=== PATIENT | female | born 1945 | race Caucasian/White ===

== ENCOUNTER 2024-08-08 09:41 | Emergency (ER) | payer OTHER ==
[~2024-08-08] VITALS: Ht 157.5 cm; Wt 50.0 kg
[2024-08-08] MEDS ORDERED: LANOXIN125 MCG PO (11:29)
[2024-08-08] MEDS ORDERED: ELIQUIS5 MG PO (11:29)
[2024-08-08 11:40] VITALS: BP 136/78
== END 2024-08-08 11:40 | disposition home or self-care (01) ==
LOC: ED 09:41
DX: Z76.0 Encounter for issue of repeat prescription (principal); I48.91 Unspecified atrial fibrillation; Z79.01 Long term (current) use of anticoagulants
CPT/HCPCS: 99281

== ENCOUNTER 2024-11-25 10:25 | Emergency (ER) | payer MEDICARE, OTHER ==
[~2024-11-25] VITALS: Ht 157.5 cm; Wt 45.3 kg
[~2024-11-25 10:25] MED LIST: ELIQUIS5 MG PO; LANOXIN125 MCG PO
[2024-11-25 17:53] VITALS: BP 152/106
== END 2024-11-25 17:56 | disposition home or self-care (01) ==
LOC: ED 10:25
DX: S12.111A Posterior displaced Type II dens fracture, initial encounter for closed fracture (principal); S12.200A Unspecified displaced fracture of third cervical vertebra, initial encounter for closed fracture; I10 Essential (primary) hypertension; I48.91 Unspecified atrial fibrillation; W01.0XXA Fall on same level from slipping, tripping and stumbling without subsequent striking against object, initial encounter; Z79.899 Other long term (current) drug therapy
CPT/HCPCS: 72040; 72125; 99284-25

== ENCOUNTER 2025-02-16 16:19 | Inpatient (IN) | payer MEDICARE, OTHER ==
[~2025-02-16] VITALS: Ht 157.5 cm; Wt 38.4 kg
[~2025-02-16 16:19] MED LIST changes: +CARTIA XT180 MG PO; +METOPROLOL SUC100 MG PO
[2025-02-16] MEDS ORDERED: METOPROLOL TARTRATE 5 MG/5 ML VIAL IV SCH (16:30)
[2025-02-16 16:33] LABS: BASOPHILS 0.2 % (0.1-1.2); EOSINOPHILS 0 % (0.7-5.8); LYMPHOCYTES 6.6 % (19.3-51.7); MCH 35.3 PG (25.6-32.2); MCHC 32.1 g/dL (32.2-35.5); MCV 109.8 fL (79.4-94.8); MONOCYTES 5.8 % (4.7-12.5); NEUTROPHILS 87.1 % (34.0-71.1); RBC 3.57 M/uL (3.93-5.22)
[2025-02-16] MEDS ORDERED: SODIUM CHLORIDE 0.9% 500 ML IV PRN ×2 (16:45→17:15)
[2025-02-16 16:58] LABS: ALT (SGPT) 61 U/L (14-59); AST (SGOT) 163 U/L (15-37); GLOMERULAR FILTRATION RATE,EST 51 mL/min (>60); PROTEIN, TOTAL 7.0 g/dL (6.4-8.2); UREA NITROGEN 31 mg/dL (7-18)
[2025-02-16 17:00] LABS: LACTIC ACID, BLOOD 1.8 mmol/L (0.4-2.0)
[2025-02-16] MEDS ORDERED: OXYCODONE HCL5 M3 PO (17:09)
[2025-02-16] MEDS ORDERED: DIGOXIN 500 MCG/2 ML AMP IV ONE ×2 (17:15→18:15)
[2025-02-16 18:47] LABS: BLOOD/HGB, URINE TRACE-I (Negative); KETONE, URINE SMALL (Negative); LEUK ESTERASE, URINE TRACE (negative); NITRITE, URINE NEGATIVE (negative)
[2025-02-16 18:59] LABS: BACTERIA, URINE 1+ /hpf (negative); CRYSTALS, URINE NONE SEEN (0-1+); EPITHELIAL CELLS, URINE SQUAMOUS 2+ /lpf (0-1+)
[2025-02-16 19:00] LABS: CASTS, URINE HYALINE 2+ \\lpf; REFLEX CULTURE, URINE No (No)
[2025-02-16] MEDS ORDERED: ACETAMINOPHEN 325 MG TAB PO PRN (19:30)
[2025-02-16] MEDS ORDERED: LACTATED RINGER'S 1,000 ML IV SCH (19:30)
[2025-02-16] MEDS ORDERED: PROCHLORPERAZINE EDISYLATE 10 MG/2 ML VIAL IV PRN (19:30)
[2025-02-16] MEDS ORDERED: DEXTROSE 50% 50 ML SYR IV PRN ×2 (19:45)
[2025-02-16] MEDS ORDERED: GLUCAGON,HUMAN RECOMBINANT 1 MG/ML VIAL SUB-Q PRN (19:45)
[2025-02-16] MEDS ORDERED: IBLOOD GLUCOSE TEST STRIP 1 EA TEST XX PRN (19:45)
[2025-02-16] MEDS ORDERED: DEXTROSE 5% 1,000 ML IV PRN (19:45)
[2025-02-16] MEDS ORDERED: METOPROLOL TARTRATE 25 MG TAB PO SCH (20:00)
[2025-02-16 20:24] VITALS: BP 104/67
--- NOTE | 2025-02-16 20:27 | EKG ---
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
[2025-02-16 20:30] VITALS: BP 102/74
--- NOTE | 2025-02-16 20:30 | NUR ---
PATIENT ARRIVED TO THE UNIT 2004 VIA STRETCHER. PATIENT IS AAOX4. HR 110-140'S A FIB. BP STABLE. PATIENT IS TOLERATING ROOM AIR. DENIES SOB OR PAIN. PATIENT IS WEAK; ABLE TO TRANSFER WITH 2PA. BRUISING NOTED ON PATIENT'S FOREHEAD AND LEFT SHOULDER. REDNESS/BRUISING NOTED ON BOTH SIDE OF UPPER/MID BACK. REDNESS AND EXCORIATION NOTED IN GLUTEAL CREVIS AND YESI AREA. PATIENT REPORTS SORENESS IN THIS AREA WHEN GOING TO THE BATHROOM. PATIENT EXTREMITIES FEEL COLD AND ARE DUSKY COLORED. DIFFICULT TO OBTAIN PULSE OX READING ON FINGERS OR EAR LOBE. NOSE CLIP USED. WARM BLANKETS APPLIED. IV FLUIDS STARTED PER ORDER; IV SITE WNL X1. DISCUSSED CALLING PATIENT'S FRIENDS OR FAMILY TO LET THEM KNOW SHE IS HERE. PATIENT STATED IF AN EMERGENCY OCCURED WE COULD CALL HER SON JUNIOR, BUT OTHERWISE DID NOT WANT TO LET ANYONE KNOW SHE WAS HERE TONIGHT. PATIENT HAS HER CELLPHONE WITH HER.
[2025-02-16 20:45] VITALS: BP 98/72
[2025-02-16] MEDS ORDERED: POTASSIUM CHLORIDE 10 MEQ TABCR PO ONE (20:45)
[2025-02-16] MEDS ORDERED: MAGNESIUM SULFATE 2 GM/50 ML BAG IV ONE (20:45)
--- NOTE | 2025-02-16 20:45 | NUR ---
PATIENT'S HR DROPPED TO THE 30-40'S AND APPEARS TO BE A SINUS ARRYTHMIA. THIS LAST FOR ABOUT A MIN AND THEN BACK TO AFIB IN THE 130'S. DISCUSSED THIS WITH . PO LOPRESSOR GIVEN PER ORDER.
[2025-02-16 21:00] VITALS: BP 92/56
[2025-02-16 21:45] VITALS: BP 99/64
--- NOTE | 2025-02-16 21:50 | NUR ---
PATIENT PROVIDED MAG AND K+ REPLACEMENT PER ORDER. ASSISTED PATIENT UP TO BSC. PATIENT IS WEAK BUT ABLE TO STAND ON HER OWN AND TRANSFER. THICK BARRIER CREAM APPLIED TO GLUTEAL CREVIS AND YESI AREA REDNESS. PATIENT REPORTS IT FEELS BETTER WITH THE CREAM. PATIENT ALSO HAD SMALL AMOUNT OF LOOSE STOOL WHICH SHE STATES HAS BEEN HAPPENING THE LAST WEEK OR SO. PATIENT ASSISTED BACK INTO BED. WARM BLANKETS PROVIDED. PATIENT REQUEST THE TV AND LIGHTS OFF. CALL LIGHT IN REACH. BED ALARM ACTIVE. ALLOWED PATIENT TO REST.
[2025-02-16 23:20] VITALS: BP 94/65
--- NOTE | 2025-02-16 23:30 | NUR ---
PATIENT RESTING IN BED. ALERT. DENIED NEEDS. VS STABLE. IV SITE WNL. CALL LIGHT IN REACH.
[2025-02-17] VITALS (17 sets, daily range): BP systolic 80–139; BP diastolic 58–90
--- NOTE | 2025-02-17 02:30 | NUR ---
PATIENT PROVIDED SCHEDULED MEDS. VS STABLE. PATIENT REPORTS PAIN IN HER FEET. HEELS FLOATED ON PILLOW. PRN TYLENOL PROVIDED.
--- NOTE | 2025-02-17 04:00 | NUR ---
PATIENT ASSISTED TO FIND SOMETHING TO WATCH ON TV. PATIENT IS UNABLE TO SLEEP. VS STABLE. DENIED NEED TO VOID. CALL LIGHT IN REACH.
[2025-02-17 05:28] LABS: BASOPHILS 0.1 % (0.1-1.2); EOSINOPHILS 0.1 % (0.7-5.8); LYMPHOCYTES 15.6 % (19.3-51.7); MCH 35.4 PG (25.6-32.2); MCHC 32.9 g/dL (32.2-35.5); MCV 107.7 fL (79.4-94.8); MONOCYTES 8.8 % (4.7-12.5); NEUTROPHILS 75.1 % (34.0-71.1); RBC 2.60 M/uL (3.93-5.22)
[2025-02-17 05:58] LABS: ALT (SGPT) 35.0 U/L (14-59); AST (SGOT) 94.0 U/L (15-37); GLOMERULAR FILTRATION RATE,EST 80.0 mL/min (>60); PHOSPHORUS, INORGANIC 2.5 mg/dL (2.5-4.9); PROTEIN, TOTAL 4.9 g/dL (6.4-8.2); UREA NITROGEN 21.0 mg/dL (7-18)
--- NOTE | 2025-02-17 07:00 | NUR ---
PATIENT DENIED NEED TO VOID. BLADDER SCAN 250 MLS. PATIENT THEN HAD TO VOID AFTER PRESSURE APPLIED. PATIENT UP TO BSC WITH DAILY EVERETT RN.
--- NOTE | 2025-02-17 07:15 | NUR ---
PT BACK TO BED AFTER USING BSC. PT WEAK ON TRANSFER, STEADY ON FEET WITH 1PA. PROVIDED PT WITH JUICE PER REQUEST. CALL LIGHT IN REACH
--- NOTE | 2025-02-17 07:30 | NUR ---
REPORT RECEIVED FROM MADELEINE HASSAN. PT RESTING IN BED, AWAKE, DENIES NEEDS AT THIS TIME. HR MOSTLY 80'S-90'S, DIPPING DOWN OCCASIONALLY WITH 4 SECOND PAUSES, MD AWARE.
--- NOTE | 2025-02-17 08:30 | NUR ---
BREAKFAST BROUGHT IN TO PT, NO NEEDS AT THIS TIME.
[2025-02-17] MEDS ORDERED: DIGOXIN 125 MCG TAB PO SCH (09:00)
--- NOTE | 2025-02-17 09:20 | NUR ---
PT WORKING WITH PHYSICAL THERAPY. HR UP TO 120'S BRIEFLY BUT GOES BACK DOWN.
--- NOTE | 2025-02-17 09:45 | NUR ---
IN TO GIVE SCHEDULED DIGOXIN, JOCELYN MARSHALL'Lit PER DR OSBORNE. PT SITTING UP IN CHAIR, HAS NO REQUESTS AT THIS TIME.
--- NOTE | 2025-02-17 10:10 | NUR ---
SPEECH THERAPIST IN TO SEE PT. PT REMAINS SITTING UP IN CHAIR.
--- NOTE | 2025-02-17 11:10 | NUR ---
PT RESTING IN CHAIR, WATCHING TV. DENIES NEEDS AT THIS TIME, CALL LIGHT IN REACH
[2025-02-17] MEDS ORDERED: PHARMACY RENAL DOSE ADJUSTMENT 1 DOSE MISC PO SCH (12:00)
--- NOTE | 2025-02-17 12:09 | NUR ---
PT HAS BEEN SITTING IN CHAIR, WORKING ON EATING HER LUNCH, HR HAS BEEN VARIABLE, RANGING FROM 40'S UP TO 140'S. OVERALL MOSTLY 100-140'S. PT DENIES FEELING ANY SYMPTOMS DURING THIS TIME EVEN WHEN HR UP TO 140'S SHE STATES SHE DOES NOT FEEL ANY DIFFERENCE. DR OSBORNE CALLED AND UPDATED, ORDER GIVEN FOR 12.5MG PO LOPRESSOR.
[2025-02-17] MEDS ORDERED: METOPROLOL TARTRATE 25 MG TAB PO ONE (12:15)
--- NOTE | 2025-02-17 12:38 | NUR ---
MED REC COMPLETE
[2025-02-17] MEDS ORDERED: LACTATED RINGER'S 1,000 ML IV ONE (13:00)
--- NOTE | 2025-02-17 13:06 | NUR ---
LR BOLUS STARTED INTO RIGHT AC IV SITE. PT RESTING IN CHAIR, DENIES NEEDS AT THIS TIME, CALL LIGHT IN REACH.
--- NOTE | 2025-02-17 14:00 | NUR ---
PT REMAINS UP IN CHAIR, HR 90-100'S AFIB.
--- NOTE | 2025-02-17 14:15 | NUR ---
INTO SEE PATIENT. PERSONAL HEALTH INFORMATION REVIEWED. PATIENT LIVES ALONE AT [facility]. PATIENT DOES NOT HAVE ANY STEPS AT HOME. WALKER AT BASELINE. DENIES OXYGEN USE OR CPAP. PATIENT STATES SHE STILL DRIVES. PATIENT STATES THAT MONEY GETS TIGHT EVERY MONTH BUT SHE MANAGES. SPOKE WITH HER ABOUT THERAPY RECCOMENDATIONS SNF. PATIENT AGREEABLE. PATIENT CHOICE LETTER GIVEN. [place] IS WHERE SHE WOULD LIKE TO GO. ATTEMPTED TO CALL SON. LEFT MESSAGE TO CALL BACK.
--- NOTE | 2025-02-17 15:20 | NUR ---
UR CLINICAL REVIEW: 2 MN FOR VERSALUS-PER CATALOGING ASSISTANT MEETS INPT FOR AFIB WITH RVR WITH NEED FOR MONITORING AND MEDICATION ADJUSTMENT MEDICARE INPT 02/16/25 @ 1443 ORDER MATCHES REG NO AUTH REQUIRED PER MEDICARE GUIDELINES DISCHARGE TO HOME WHEN STABLE
--- NOTE | 2025-02-17 16:41 | NUR ---
PT SITTING UP IN CHAIR, HR 100'S AFIB.
--- NOTE | 2025-02-17 17:45 | NUR ---
PT ATE SMALL AMT DINNER, REMAINS UP IN CHAIR.
--- NOTE | 2025-02-17 19:00 | NUR ---
PT ASSISTED TO REPOSITION, WANT TO STAY UP IN CHAIR, RESTING HR 90-100'S. HR HAS BEEN MORE STABLE THIS AFTERNOON.
--- NOTE | 2025-02-17 20:10 | NUR ---
[facility] TO [facility] BEFORE BACK TO BED. PT HAD A SMEAR OF BM. PT THEN TRANSFER TO BED WITH ONE PERSON. PT BACK IS VERY BRUSHED FROM THE FALL AT HOME. PT TOOK PO MEDS WELL CALL LIGHT WITHIN REACH BED ALARM ON.
[2025-02-17] MEDS ORDERED: APIXABAN 5 MG TAB PO SCH (21:00)
--- NOTE | 2025-02-17 21:00 | NUR ---
PT ASLEEP AND SPO2 DECREASE TO 87% ON ROOM AIR. PT PLACED ON 2L'S O2 VIA NC AND SPO2 INCREASED 94%.
--- NOTE | 2025-02-17 21:55 | NUR ---
PT ASLEEP AT THIS TIME, PT CONTIOUES TO AT TIMES HEART RATE DECREASE TO THE 40"S AND THEN POP'S UP TO THE 80 TO 90"S. PT HAS NO DESTRESS WITH THIS.
[2025-02-18] VITALS (22 sets, daily range): BP systolic 91–129; BP diastolic 56–97
--- NOTE | 2025-02-18 00:06 | NUR ---
PT AWAKENS WHEN SPOKEN TOO, PT COLD WARM BLANKET GIVEN AT THIS TIME. ASKED PT IF SHE HAD TO VOID AND PT STATES "NO"
--- NOTE | 2025-02-18 02:55 | NUR ---
PT REPOSITIONED TO RT SIDE, BED ALARM INPLACE. PT CONTIOUES TO SAY SHE DOES NOT NEED TO VOID, BED IS DRY.
--- NOTE | 2025-02-18 05:20 | NUR ---
PT UP TO BEDSIDE COMMODE. AFTER LAB SAMPLE OBTAINED. PT IS VERY STIFF AND PUSH AGAINST STAFF TRYING TI HELP MOVE HER. PT VOIDED AND PASSED SOME GAS, BUT NO BM AT THIS TIME. FRESH ATTENDS PLACED. BACK TO BED AND CALL LIGHT WITHIN REACH, BED ALARM ON.
[2025-02-18 05:21] LABS: BASOPHILS 0.4 % (0.1-1.2); EOSINOPHILS 0.6 % (0.7-5.8); LYMPHOCYTES 21.5 % (19.3-51.7); MCH 35.8 PG (25.6-32.2); MCHC 33.3 g/dL (32.2-35.5); MCV 107.3 fL (79.4-94.8); MONOCYTES 9.3 % (4.7-12.5); NEUTROPHILS 67.8 % (34.0-71.1); RBC 2.60 M/uL (3.93-5.22)
[2025-02-18 05:31] LABS: SMEAR REVIEW BLOOD SEE COMMENTS
[2025-02-18 05:38] LABS: ALT (SGPT) 36.0 U/L (14-59); AST (SGOT) 69.0 U/L (15-37); GLOMERULAR FILTRATION RATE,EST 91.0 mL/min (>60); PROTEIN, TOTAL 4.3 g/dL (6.4-8.2); UREA NITROGEN 14.0 mg/dL (7-18)
--- NOTE | 2025-02-18 06:48 | NUR ---
PT TURNED TO RT SIDE AT THIS TIME, SHE STILL IS CONFUSED TO EVENTS AND PLACE AND WHAT SHE DID LAST NIGHT. BED ALARM ON.CALL LIGHT WITHIN REACH
--- NOTE | 2025-02-18 08:30 | NUR ---
PATIENT IS SITTING IN CHAIR WITH BLE ON THE FLOOR, CHAIR ALARM IN PLACE. PATIENT HAS BREAKFAST TRAY IN FRONT OF HER. DISORIENTED TO TIME, EVENT AND LOCATION. PATIENT IS CONCERNED ABOUT HER TV AND CAR BEING STOLEN. SHE COMMUNICATED WANTING TO GO INTO TOWN TODAY AND WAS REORIENTED TO THE HOSPITAL WITH A REALISTIC PLAN OF CARE. PATIENT HAS CLEAR LUNG SOUNDS AND IS ON RA. HR IS BETWEEN 40S-150S. NO EDEMA NOTED, STRONG RADIAL AND PEDAL PULSES, CAPILLARY REFILL WITHIN 3 SECONDS. BRUISES SCATTERED THROUGHOUT HER BODY, SHE ENDORSES SOME SORENESS. PATIENT REPOSITIONS SELF WHEN UNCOMFORTABLE. PATIENT DENIES SOB OR PAIN. CALL LIGHT AND PERSONAL BELONGINGS ARE WITHIN REACH.
--- NOTE | 2025-02-18 09:43 | NUR ---
PT ASSISTED BACK TO BED WITH CHAIR NEXT TO BED AND 1 PERSON ASSIST. PT HAD HAD A SMALL BM IN DEPENDS, CHANGED AND CLEANED UP. PT STATES COMFORTABLE WITH CALL LIGHT IN REACH, ALARMS ON.
[2025-02-18] MEDS ORDERED: METOPROLOL TARTRATE 25 MG TAB PO SCH (09:45)
[2025-02-18] MEDS ORDERED: MAGNESIUM SULFATE 2 GM/50 ML BAG IV SCH (09:45)
[2025-02-18] MEDS ORDERED: LACTATED RINGER'S 1,000 ML IV ONE (09:45)
[2025-02-18] MEDS ORDERED: POTASSIUM CHLORIDE 40 MEQ,LIDOCAINE HCL 1% 40 MG in DEXTROSE 5% 250 ML IV ONE (09:45)
--- NOTE | 2025-02-18 10:44 | NUR ---
PHYSICAL THERAPY, OCCUPATIONAL THERAPY AND CASE MANAGMENT IN THE ROOM WITH THE PATIENT AT THIS TIME. PATIENT HAS LR BOLUS, IV MAGNESIUM AND POTASSIUM INFUSING AT THIS TIME. PATIENT IS ON 1L NC DUE TO DESAT WITH SLEEP. PHYSICAL THERAPIST INFORMED THEY COULD TAKE IT OFF FOR AMBULATION IF SHE IS ABOVE 90%. PATIENT STATES NO FURTHER NEEDS. IV SITE PATENT WITH NO SIGNS OF LEAKING OR EXTRAVASTION. PATIENT CONTINUES TO NOT BE ORIENTED TO EVENT, DATE AND TIME, EVEN WITH REORIENTATION.
--- NOTE | 2025-02-18 10:45 | NUR ---
Spoke with Camilla. She lives at [facility] and plans on returning there following dc. Pt is working with PT/OT and pt is agreeable to placement to a SNF on dc. Pt denies needs.
--- NOTE | 2025-02-18 11:40 | NUR ---
VISITED DURING SPIRITUAL CARE ROUNDS. PT APPEARED OT BE SLEEPING. DID NOT DISTURB. PROVDED PRAYER.
--- NOTE | 2025-02-18 13:22 | NUR ---
PATIENT BACK IN BED AFTER SITTING IN THE CHAIR FOR ABOUT AN HOUR TO EAT LUNCH. PATIENT STATED SHE HAD SOME SOB AND DIZZINESS WITH AMBULATION. O2 SATURATION DID NOT HAVE A READABLE PLETH WITH AMBULATION. PATIENT'S O2 IN 90'S WHILE IN BED. BP 97/56 (70), WHILE LAYING IN BED. EXTREMITIES COOL AND CAPILLARY REFILL WNL. PATIENT HAD 100ML ENSURE AND NO LUNCH. PATIENT HAS POOR APPETITE AND REFUSED MORE SUPPLEMENTATION. PATIENT HAS EVEN, UNLABORED RESPIRATIONS AT THIS TIME. CALL LIGHT AND PERSONAL BELONGINGS ARE WITHIN REACH.
--- NOTE | 2025-02-18 14:56 | NUR ---
PATIENT BACK TO BED AFTER USING THE COMMODE. PATIENT HAD A SOFT, BROWN, MEDIUM BOWEL MOVEMENT AND VOIDED 100ML YELLOW URINE. PATIENT DID NOT CALL APPROPRIATELY, BED ALARM ON. PATIENT IS ONLY ORIENTED TO SELF. PATIENT AMBULATED WITH FWW AND SBA, SHE WAS SOMEWHAT UNSTEADY, ENDORSED SOB AND FOLLOWED SOME COMMANDS. PATIENT HAS PERSONAL BELONGINGS AND CALL LIGHT WITHIN REACH.
[2025-02-18] MEDS ORDERED: THIAMINE HCL 100 MG TAB PO SCH (15:23)
[2025-02-18] MEDS ORDERED: FOLIC ACID 1 MG TAB PO SCH (15:23)
[2025-02-18] MEDS ORDERED: FOLIC ACID 1 MG/0.2 ML ML IV SCH (15:28)
[2025-02-18] MEDS ORDERED: THIAMINE HCL 200 MG/2 ML VIAL IV SCH (15:29)
[2025-02-18] MEDS ORDERED: LORazepam 2 MG/ML VIAL IV/IM PRN (15:30)
[2025-02-18] MEDS ORDERED: LORazepam 1 MG TAB PO PRN (15:30)
--- NOTE | 2025-02-18 16:06 | NUR ---
DR. OSBORNE IN THE ROOM AT THIS TIME DISCUSSING PLAN OF CARE WITH PATIENT. DISCUSSING ALCOHOL USE AND NEW HEART MEDICATIONS, PATIENT ACKNOWLEDGES UNDERSTANDING. PATIENT ASKED WHEN SHE CAN GO HOME. PATIENT DENIES FURTHER QUESTIONS. SHE STATES "I JUST WANT TO GO HOME". CALL LIGHT AND PERSONAL BELONGINGS ARE WITHIN REACH.
--- NOTE | 2025-02-18 16:51 | NUR ---
Notified by nurses pt has shakes. In and spoke with pt. She does states she drinks white wine daily about a cup. She states she does not have any desire to cont. drinking. Pt is having difficulty answering questions. She believes she is on oxygen. She cannot remember where she gets her 02 from. I called [employer] and neither have her listed. Notes from yesterday show pt does not use 02.
--- NOTE | 2025-02-18 19:40 | NUR ---
HANDOFF REPORT RECEIVED FROM DAYSHIFT RN. ALL QUESTIONS ANSWERED. PATIENT RESTING IN BED. VITAL SIGNS STABLE. BED ALARM ON, CALL LIGHT IN REACH
--- NOTE | 2025-02-18 21:20 | NUR ---
PATIENT ASSESSMENT COMPLETE. PATIENT REMAINS IN AFIB W/ HR OF 100'S-120'S. RR EVEN AND UNLABORED. PATIENT ON 4L OXYMASK, AND TOLERATING WELL. LUNGS SOUNDS CLEAR. IVF INFUSING PER EMAR. IV SITE INTACT AND WNL. PATIENT LIGHT SPOKEN AND DIFFICULT TO UNDERSTAND AT TIMES. PATIENT DISORIENTED. NO EVIDENCE OF ACUTE DISTRESS NOTED. THIS RN AND SONYA BEE REMAIN IN ROOM.
--- NOTE | 2025-02-18 22:00 | NUR ---
PATIENT ATTEMPTING TO GET OUT OF BED. STAFF IN ROOM. PATIENT UP TO BSC. UNABLE TO VOID OR HAVE BM. PATIENT UNSTEADY ON FEET. 2 PA, STAND PIVOT. PATIENT BACK TO BED. PATIENT BECOMES RESTLESS AND AGITATED. UNABLE TO FOLLOW COMMANDS. CIWA SCORE OF 13, PRN ATIVAN ADMISTERED PER PROTOCOL. THIS RN AND SONYA BEE REMAIN IN ROOM.
--- NOTE | 2025-02-18 22:21 | NUR ---
PATIENT NOW RESTING COMFORTABLY IN BED. PATIENT REPOSITIONED. PATIENT ON 4L OXYMASK. SPO2 98%. PATIENT REMAINS IN AFIB. VITAL SIGNS STABLE. BED ALARM ON, CALL LIGHT IN REACH
--- NOTE | 2025-02-18 23:30 | NUR ---
PATIENT RESTING IN BED W/ EYES CLOSED. SPO2 96% ON 4L OXYMASK. NO EVIDENCE OF ACUTE DISTRESS NOTED. BED ALARM ON, CALL LIGHT IN REACH
[2025-02-19] VITALS (22 sets, daily range): BP systolic 106–148; BP diastolic 69–108
--- NOTE | 2025-02-19 00:16 | NUR ---
PATIENT RESTING IN BED WITH EYES CLOSED, OXYMASK TITRATED DOWN TO 2L. TOLERATING WELL, SPO2 97%. NO ACUTE DISTRESS NOTED. VITAL SIGNS STABLE. BED ALARM ON, CALL LIGHT IN REACH.
--- NOTE | 2025-02-19 01:12 | NUR ---
patient assessment complete. assessment unchanged. SPO2 97% on 2L oxymask. ivf infusing per emar. IV sites intact and WNL. patient remains in afib. HR 80's-90's. patient repositioned. no evidence of acute distress noted. call light in reach, bed alarm on.
--- NOTE | 2025-02-19 02:17 | NUR ---
patient resting in bed w/ eyes closed. SPO2 97% on 2L oxymask. patient tolerating well. no evidence of acute distress noted. call light in reach, bed alarm on
--- NOTE | 2025-02-19 03:15 | NUR ---
PATIENT RESTING IN BED. SPO2 97% ON 2L OXYMASK. NO EVIDENCE OF ACUTE DISTRESS NOTED. BED ALARM ON, CALL LIGHT IN REACH
--- NOTE | 2025-02-19 04:10 | NUR ---
PATIENT ASSESSMENT COMPLETE. PATIENT DROWSY BUT AROUSABLE TO VERBAL AND TACTILE STIMULI. PATIENT REFUSES ORAL MEDICATION. PATIENT SWATS AT THIS RN'S HAND. PATIENT BRIEFLY OPENS EYES BUT DRIFTS BACK TO SLEEP. PATIENT REPOSITIONED. SPO2 96% ON 2L OXYMASK. PATIENT REMAINS IN AFIB. HR UP TO 130'S W/ STIMULATION. PATIENT HR 70'S-90'S WHILE AT REST. PATIENT BRIEF CHECK AND IS CLEAN AND DRY. TOILETING OFFERED, PATIENT REFUSES. PATIENT DUE TO VOID. NO EVIDENCE OF ACUTE DISTRESS NOTED AT THIS TIME. BED ALARM ON, CALL LIGHT IN REACH.
--- NOTE | 2025-02-19 05:15 | NUR ---
PATIENT DROWSY BUT AROUSABLE TO VERBAL STIMULI. PATIENT REMAINS IN AFIB, HR 90'S-120'S. PATIENT DENIED NEED TO VOID. PATIENT BLADDER SCANNED FOR 156 ML. PATIENT UP TO BS, HEAVY 2 PA, STAND PIVOT. PATIENT BRIEF HEAVILY SATURATED W/ URINE. PATIENT VOID 100 ML OF CLEAR, YELLOW URINE AND HAD VERY SMALL AMOUNT OF STOOL. ALLEVYN PLACED ON UPPER BACK D/T NON-BLANCHABLE REDDENED AREA. SMALL OPEN AREA NOTED ON SACRUM, ALLEVYN PLACED. SKIN BREAKDOWN NOTED TO BUTTOCKS, CAVILON APPLIED. PATIENT LUNG SOUNDS NOTED TO BE COARSE THROUGHOUT. PATIENT AGREES TO TAKE ORAL MEDICATION. PATIENT TOLERATED WELL. PATIENT BACK TO BED. REPOSITIONED. QUICKLY FALLS BACK TO SLEEP. SPO2 95% ON 1L OXYMASK. NO FURTHER NEEDS IDENTIFIED. BED ALARM ON, CALL LIGHT IN REACH
[2025-02-19 05:27] LABS: BASOPHILS 0.9 % (0.1-1.2); EOSINOPHILS 1.5 % (0.7-5.8); LYMPHOCYTES 20.3 % (19.3-51.7); MCH 35.1 PG (25.6-32.2); MCHC 32.6 g/dL (32.2-35.5); MCV 107.9 fL (79.4-94.8); MONOCYTES 13.0 % (4.7-12.5); NEUTROPHILS 63.9 % (34.0-71.1); RBC 2.79 M/uL (3.93-5.22)
[2025-02-19 05:43] LABS: SMEAR REVIEW BLOOD SEE COMMENTS
[2025-02-19 05:46] LABS: ALT (SGPT) 33.0 U/L (14-59); AST (SGOT) 51.0 U/L (15-37); GLOMERULAR FILTRATION RATE,EST 91.0 mL/min (>60); PROTEIN, TOTAL 5.0 g/dL (6.4-8.2); UREA NITROGEN 9.0 mg/dL (7-18)
--- NOTE | 2025-02-19 06:07 | NUR ---
PATIENT DESATURATES TO 88% ON 1 L OXYMASK. PATIENT PLACED ON 2L OXYMASK. SPO2 NOW 98%. NO EVIDENCE OF ACUTE DISTRESS NOTED. BED ALARM ON, CALL LIGHT IN REACH
[2025-02-19] MEDS ORDERED: MULTIVITAMINS THERAPEUTIC 1 EA TAB PO SCH (08:00)
--- NOTE | 2025-02-19 08:15 | NUR ---
Received a call from pts son, Ambrose. He has been working out of town, but has returned. He states he and live in town and help Camilla when needed. 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 She has detoxed in the past at [facility] and it was very difficult. He has two brothers and they do not live in this area. Updated, I discussed with pt SNF yesterday and she requested to stay in [place]. Per Ambrose, pt has been in [place] in the past and she hated it. She would not eat and lost weight. He would prefer [facility] or [facility]. I let him know, she is confused today as she is withdrawing from alcohol. When she can make a decision, I will ask her about placement again. He also requested [facility]. I will send the chart to all and pt can make a decision when she is more clear.
--- NOTE | 2025-02-19 11:00 | NUR ---
Attempted to speak with Camilla. She does open her eyes, but only stares. She does not verbally respond.
--- NOTE | 2025-02-19 15:38 | EKG ---
[facility] [address] [place] [address] Signed Atrial fibrillation with rapid ventricular response Anterior infarct (cited on or before 23-DEC-2024) ST \T\ T wave abnormality, consider lateral ischemia Abnormal ECG When compared with ECG of 16-FEB-2025 17:08, Atrial fibrillation has replaced Atrial flutter Questionable change in initial forces of Anteroseptal leads Confirmed by Marifer Osborne MD () on 02/19/2025 3:38:14 PM Electronically Signed By: MARIFER OSBORNE MD 02/19/25 1538 PATIENT NAME: PEACE PARSON Electrocardiogram DATE OF : 49 PHYSICIAN: MARIFER OSBORNE MD REPORT #: [id number] REPORT IS CONFIDENTIAL AND NOT TO BE RELEASED WITHOUT AUTHORIZATION
--- NOTE | 2025-02-19 17:32 | NUR ---
PATIENT IS RESTING WITH EYES CLOSED AND HOB ELEVATED. PATIENT IS ON 2L OXYMASK, RR 18 AND O2 @ 97%. PATIENT GIVEN BED BATH AND LINEN CHANGE TODAY. DURING THE LINEN CHANGE, THE RIGHT WRIST IV WAS RIPPED OUT DURING THE GOWN CHANGE. IV CATHETER TIP INTACT AND DRESSED WITH GAUZE AND COBAN. PATIENT GIVEN ATIVAN PER JUL FOR A CIWA OF 16. PATIENT HAD TREMORS, VISUAL HALLUCINATIONS, SWEATING, AND RESTLASSNESS/AGITATION. WAFFLE MATTRESS PLACED WITH LINEN CHANGE. PATIENT CURRENTLY FLOATED ON TWO PILLOWS. BED ALARM ON, PERSONAL BELONGINGS AND CALL LIGHT ARE WITHIN REACH.
[2025-02-19] MEDS ORDERED: FUROSEMIDE 40 MG/4 ML VIAL IV SCH (18:25)
--- NOTE | 2025-02-19 19:30 | NUR ---
SHIFT REPORT RECEIVED. RT IN ROOM SETTING UP BIPAP. 1:1 SITTER AT BEDSIDE FOR SAFETY.
--- NOTE | 2025-02-19 19:56 | NUR ---
PATIENT RESTLESS IN BED. EYES CLOSED. ON BIPAP. VS STABLE. LUNG SOUNDS ARE THIGH AND COARSE THROUGHOUT; DIMINSIHED IN THE BASES. ANTUNEZ DRAINING CLEAR URINE. PATIENT IS COOL TO TOUCH. WARM BLANKETS APPLIED. 1:1 SITTER AT BEDSIDE.
--- NOTE | 2025-02-19 21:57 | NUR ---
PATIENT TOLERATING BIPAP WELL. HR IS TRENDING UP; 115-130 A FIB. BP STABLE. PATIENT AFEBRILE. GOOD URINE OUTPUT. SITTER 1:1 AT BEDSIDE.
[2025-02-19] MEDS ORDERED: METOPROLOL TARTRATE 5 MG/5 ML VIAL IV SCH (22:00)
--- NOTE | 2025-02-19 22:10 | NUR ---
DISCUSSED PATIENT WITH DR.JAGOO PEPPER PATIENT'S INABILITY TO TAKE PO MEDS AT THIS TIME AND RATE CONTROL FOR AFIB. PLAN TO START IV LOPRESSOR; SEE EMAR.
--- NOTE | 2025-02-19 22:51 | NUR ---
PATIENT PROVIDED SCHEDULED LOPRESSOR. IV SITE WNL. HR 110-130'S; AFIB. PATIENT TOLERATING THE BIPAP WELL. PATIENT MOVES ALL EXTREMITIES BUT DOES NOT RESPOND TO VERBAL STIMULI OR OPEN HER EYES. SITTER AT BEDSIDE.
[2025-02-20] VITALS (20 sets, daily range): BP systolic 91–133; BP diastolic 58–98
--- NOTE | 2025-02-20 | NUR ---
PATIENT REMAINS ON BIPAP AND IS MOSTLY OBTUNDED. RESPONDS TO PAIN AND HAS GAG REFLEX. PUPILS EQUAL AND REACTIVE TO LIGHT. VS STABLE. ANTUNEZ DRAINING LARGE AMOUNT OF CLEAR URINE. PATIENT HAS SITTER FOR SAFETY WHILE ON BIPAP.
--- NOTE | 2025-02-20 02:00 | NUR ---
PATIENT STATUS UNCHANGED FROM PREVIOUS ASSESSMENT. REMIANS ON BIPAP, REMAINS OBTUNDED, VS STABLE. SITTER AT BEDSIDE.
--- NOTE | 2025-02-20 04:00 | NUR ---
PATIENT REPOSITIONED IN BED. PATIENT RESPONDS TO PRESSURE WITH LOCALIZING ARM MOVEMENT BUT IS WEAK AND DOES NOT OPEN HER EYES. PATIENT LUNG SOUNDS ARE COARSE THROUGHOUT. OFF BIPAP FOR ORAL CARE AND TOLERATES ROOM AIR FOR 3-5 MINS. PATIENT DOES HAVE AN UPPER AIRWAY SNORE WHEN OFF BIPAP DUE TO HER TOUNGE BEING FLACID AT THE BACK OF HER THROAT. PATIENT'S VS REMAIN STABLE. ANTUNEZ HAS GOOD OUTPUT. PATIENT HAS SITTER FOR SAFETY. BIPAP BACK IN PLACE.
[2025-02-20 05:27] LABS: BASOPHILS 0.8 % (0.1-1.2); EOSINOPHILS 1.4 % (0.7-5.8); LYMPHOCYTES 12.7 % (19.3-51.7); MCH 35.8 PG (25.6-32.2); MCHC 33.4 g/dL (32.2-35.5); MCV 107.0 fL (79.4-94.8); MONOCYTES 16.2 % (4.7-12.5); NEUTROPHILS 68.4 % (34.0-71.1); RBC 2.99 M/uL (3.93-5.22)
[2025-02-20 05:44] LABS: SMEAR REVIEW BLOOD SEE COMMENTS
[2025-02-20 05:47] LABS: ALT (SGPT) 36.0 U/L (14-59); AST (SGOT) 42.0 U/L (15-37); GLOMERULAR FILTRATION RATE,EST 89.0 mL/min (>60); PROTEIN, TOTAL 5.2 g/dL (6.4-8.2); UREA NITROGEN 7.0 mg/dL (7-18)
--- NOTE | 2025-02-20 07:30 | NUR ---
PATIENT REPORT RECIVED. PATIENT ON BIPAP WITH SITTER AT THIS TIME FOR HER SAFETY. PER RN PATIENT HAS BEEN OBTUNDED AND NOT FOLLOWING COMMANDS.
[2025-02-20] MEDS ORDERED: THIAMINE HCL 100 MG TAB PO SCH (08:00)
[2025-02-20] MEDS ORDERED: FOLIC ACID 1 MG TAB PO SCH (08:00)
[2025-02-20] MEDS ORDERED: FUROSEMIDE 40 MG/4 ML VIAL IV SCH (09:00)
[2025-02-20] MEDS ORDERED: MAGNESIUM SULFATE 2 GM/50 ML BAG IV ONE (09:00)
--- NOTE | 2025-02-20 09:00 | NUR ---
PATIENT RESTING IN BED ON BIPAP. PATIENT REMAINS OBTUNDED. PATIENT MOVES HER ARMS AROUND BUT NOT FOLLOWING COMMANDS. MEDICATIONS GIVEN. IV PLACED. REPOSITIONED IN BED WITH PILLOW SUPPORT.
[2025-02-20] MEDS ORDERED: DIGOXIN 500 MCG/2 ML AMP IV SCH (10:00)
--- NOTE | 2025-02-20 10:34 | NUR ---
KIERSTEN IN TO ASSESS PATIENT. PATIENT TAKEN OFF BIPAP AND ON RA AT THIS TIME. SITTER AT THE BEDSIDE. PATIENT REMAINS OBTUNDED. PATIENT DOES MOVE HER ARMS AROUND BUT DOES NOT FOLLOW ANY COMMANDS.
--- NOTE | 2025-02-20 12:00 | NUR ---
In to speak with Camilla. Nurse in room and pt is not awakened and does not awaken to voice.
--- NOTE | 2025-02-20 13:00 | NUR ---
Staff have been in to reposition patietn every hour d/t fidgiting and restlessness. new linen placed, attends on, pads in place. repositioned to side with pillow support. patients son was updated. patient is more alert, but does not follow any commands. patient has a sitter for safety.
--- NOTE | 2025-02-20 14:27 | NUR ---
patient repositioned to other side with pillwo support. howard catheter repositioned and no issues. falls mats in place and patietns sitter at bedside. patient on 1l nc at this time.
--- NOTE | 2025-02-20 15:47 | NUR ---
PATIENT RESTING IN EBD ON SIDE WITH PILLOW SUPPORT. PATIENT IS PULLING AT OXYMASK. PLACED NASAL CANNULA AT 2L OXYGEN IN PLACE INSTEAD OF OXYMASK, WYATT SEE IF IT WOULD BE LESS IRRITATING TO PATIENT. PATIENT IS MOVING AND MUMBLING INCOMPREHENSIBLE AT TIMES. PATIENT DOES NOT FOOLLOW COMMANDS. PATIENT HAS FALL MATS IN PLACE FOR HER SAFETY. PATIENT ON MONITOR. NO SITTER AT THIS TIME, BUT INCREASED PRESENCE OF STAFF IN ROOM. PATIENT HAS NOT ATEMPTED TO GET OUT OF BED. IVS IN [place]. PATIENT HAS NOT PULLED AT THEM TODAY.
--- NOTE | 2025-02-20 17:55 | NUR ---
PATIENTS FAMILY STOPPED BY TO CHECK ON PATIENT. PATIENT HAS BEEN MORE AWAKE, BUT DOES NOT FOLLOW COMMANDS OR NOTICE FAMILY. PATIENT RESTING IN BED WITH TV ON. BED ALARM IN [place].
--- NOTE | 2025-02-20 18:08 | NUR ---
SPOKE WITH MD ABOUT PO MEDICATIONS THAT WERE HELD AND MD NEVER UPDATED ORDERS TO IV MEDICATIONS. PER MD CHANGE THE MEDICATIONS TO IV. PER MD OKAY TO HOLD ELIQUS AND NO OTHER ORDERS FOR OTHER ANTICOAGULATION MEDICATIONS.
--- NOTE | 2025-02-20 19:45 | NUR ---
SHIFT REPORT RECEIVED. PATIENT RESTING IN BED EYES CLOSED. VS STABLE. TOLERATING 2L NC. PATIENT REPOSITIONED ONTO HER RIGHT SIDE SLIGHTLY. PATIENT DOES NOT OPEN HER EYES DURING CARE OR WHEN HER NAME IS SAID LOUDLY. ORAL CARE DONE; PATIENT DOES HAVE A RESPONCE TO THIS AND TRIES TO MOVE SWAB AWAY. LUNG SOUNDS ARE COARSE; WITH CRACKLES IN LLL. ANTUNEZ CATH IS DRAINING CLEAR YELLOW URINE. PATIENT IS ON WAFFEL MATTRESS AND HAS FOAM ALYVENS ON HER BACK AND BUTTOCKS FOR SKIN BREAKDOWN AND PRESSURE POINTS.
--- NOTE | 2025-02-20 20:36 | NUR ---
PATIENT PLACED ON BIPAP WITH ASSIST FROM RT. DEBURRING MACHINE OPERATOR SITTING WITH PATIENT FOR SAFETY. PATIENT DOES RESIST BIPAP MASK AT FIRST BUT STARTS TO CALM AFTER A FEW MINS.
[2025-02-20] MEDS ORDERED: THIAMINE HCL 200 MG/2 ML VIAL IV SCH (21:00)
[2025-02-20] MEDS ORDERED: FOLIC ACID 1 MG/0.2 ML ML IV SCH (21:00)
--- NOTE | 2025-02-20 21:02 | NUR ---
REVIEWED PATIENT'S LABS AND NPO STATUS WITH MD. PATIENT RECEIVING IV LASIX AND REQUIRES IV K+ REPLACEMENT; SEE EMAR. PATIENT ALSO HAS BEEN UNABLE TO TAKE ELIQUIS; LOVENOX TO START TONIGHT PER MD.
[2025-02-20] MEDS ORDERED: POTASSIUM CHLORIDE 10 MEQ/100 ML BAG IV SCH (21:15)
--- NOTE | 2025-02-20 21:32 | NUR ---
PATIENT PROVIDED IV MEDS AND POTASSIUM REPLACEMENT STARTED. IV SITE WNL. PATIENT REMIANS ON BIPAP. SITTER AT BEDSIDE.
--- NOTE | 2025-02-20 23:00 | NUR ---
patient repositioned in bed. patient remains obtunded. occationally is picking at blankets and restless in the bed. tolerating bipap; vs stable.
[2025-02-21] VITALS (16 sets, daily range): BP systolic 96–131; BP diastolic 60–90
--- NOTE | 2025-02-21 01:00 | NUR ---
PATIENT ATTEMPTING TO REMOVE MASK; PATIENT IS WEAK AND EASILY REDIRECTED. SITTER REMAINS AT BEDSIDE WHILE PATIENT IS WEARING BIPAP.
--- NOTE | 2025-02-21 02:30 | NUR ---
PATIENT REPOSITIONED IN BED. POTASSIUM REPLACEMENT HAS FINISHED; IV SITE WNL. PATIENT REMAINS SOMEWHAT RESTLESS AT TIMES BUT DOES NOT OPEN HER EYES OR FOLLOW DIRECTIONS. SITTER AT BEDSUDE WHILE PATIENT WEARING BIPAP.
--- NOTE | 2025-02-21 04:15 | NUR ---
PATIENT REMAINS RESTLESS, TRYING TO REMOVE MASK. RT PLACED PATIENT ON 2L NC. SCHEDULED LOPRESSOR PROVIDED. PATIENT VS STABLE. BED ALARM ACTIVE.
[2025-02-21 05:30] LABS: BASOPHILS 0.4 % (0.1-1.2); EOSINOPHILS 0.5 % (0.7-5.8); LYMPHOCYTES 12.1 % (19.3-51.7); MCH 35.1 PG (25.6-32.2); MCHC 33.7 g/dL (32.2-35.5); MCV 104.4 fL (79.4-94.8); MONOCYTES 17.6 % (4.7-12.5); NEUTROPHILS 68.9 % (34.0-71.1); RBC 2.96 M/uL (3.93-5.22)
[2025-02-21 05:42] LABS: SMEAR REVIEW BLOOD SEE COMMENTS
[2025-02-21 05:47] LABS: ALT (SGPT) 27.0 U/L (14-59); AST (SGOT) 42.0 U/L (15-37); GLOMERULAR FILTRATION RATE,EST 91.0 mL/min (>60); PROTEIN, TOTAL 5.3 g/dL (6.4-8.2); UREA NITROGEN 6.0 mg/dL (7-18)
--- NOTE | 2025-02-21 06:45 | NUR ---
UPDATED ON PATIENT'S VS, MENTAL STATUS AND LABS; INCLUDING GLUCOSE AND MAGNESIUM.
--- NOTE | 2025-02-21 07:03 | NUR ---
PATIENT REPOSITIONED IN BED. ANTUNEZ EMPTIED. PATIENT REMAINS MOSTLY OBTUNDED. NOT OPENING HER EYES OR FOLLOWING DIRECTIONS. BED ALARM ACTIVE.
[2025-02-21] MEDS ORDERED: MAGNESIUM SULFATE 2 GM/50 ML BAG IV ONE ×2 (08:00→21:45)
--- NOTE | 2025-02-21 08:00 | NUR ---
PATIENT REPORT RECIVED FROM MADELEINE HASSAN. PER REPORT PATIENT WORE BIPAP MAJORITY OF THE NIGHT. PATIENT HAS REMAINED VERY DROWSY AND OBTUNDED THROUGH THE NIGHT.
[2025-02-21] MEDS ORDERED: ENOXAPARIN SODIUM 30 MG/0.3 ML SYR SUB-Q SCH (09:00)
--- NOTE | 2025-02-21 09:45 | NUR ---
THIS RN AND PROVIDER IN TO ASSESS PATIENT. PATIENT MORE OBTUNDED AT THIS TIME THAN YESTERDAY EVENING WHEN I WAS CARING FOR PATIENT. DISCUSSED CONERNS WITH MD. PATIENT IS NOT OPENING HER EYES OR FIDGITYING AT THIS TIME. PATIENT VITALS STABLE. FALL MAT IN PLACE. SEE EMAR FOR RATE CONTROL MEDICATIONS FOR A.FIB. PATIENT HAS MILD MOTTLEING TO BILATERAL KNEES. PATIENTS BLOOD SUGAR REVIEWED WITH MD. BED IN LOWEST POSITION.
--- NOTE | 2025-02-21 10:49 | NUR ---
PATIENT HAS BEEN NPO X 2 DAYS DUE TO BEING CONFUSED, OBTUNDED, LIKELY RELATED TO ETOH W/D. SINCE THE NUTRITION ASSESSMENT WAS DONE, STAFF HAVE FOUND OUT THAT PATIENT DRINKS BOXES OF WINE REGULARLY. PATIENT IS NOT A BREAKFAST EATER. SHE WILL DRINK CHOCOLATE ENSURE. NUTRITION INTERVENTION: DIETARY WILL CONTINUE TO SEND ENSURE PLUS HP (MARQUITA) ON EACH MEAL TRAY WHEN REGULAR DIET RESUMES. NUTRITION GOAL: PATIENT TO CONSUME AT LEAST 50% OF MEALS AND 75% OF ENSURE TID WHEN SHE IS MORE ALERT. PATIENT IS AT MODERATE NUTRITION RISK. RD WILL FOLLOW UP WITHIN 7 DAYS.
--- NOTE | 2025-02-21 11:15 | NUR ---
In to see Camilla. She does not respond. Resting in bed with eyes closed.
--- NOTE | 2025-02-21 11:30 | NUR ---
PATIENT REPOSITIONED WITH PILLOW SUPPORT. PATIENT OCCASIONALLY FIGITING WITH OXYGEN, OTHERWISE DOES NOT REPOSND TO STAFF. NO EYE OPENING OR WITHDRAWL TO STIMULI.
--- NOTE | 2025-02-21 11:34 | NUR ---
VISITED DURING SPIRITUAL CARE ROUNDS. PT APPEARED TO BE SLEEPING. DID NOT DISTURB. PROVIDED PRAYER.
--- NOTE | 2025-02-21 12:15 | NUR ---
RT IN TO SEE PATIENT. DISCUSSED PLAN OF CARE AND PATIENTS MENTATION/ RESPIRATORY STATUS WITH HÉCTOR CHOI. SHE SPOKE WITH PROVIDER ABOUT VBG/ABG AFTER PLACING PATIENT ON CO2 MONITOR. NO NEW ORDERS. MD AWARE OF RNS CONCERNS REGARDING PATIENTS COGNIGTIVE STATUS.
[2025-02-21] MEDS ORDERED: CYANOCOBALAMIN 1000 MCG IV SCH (12:17)
[2025-02-21] MEDS ORDERED: CYANOCOBALAMIN 1,000 MCG/ML VIAL IV SCH (13:00)
[2025-02-21] MEDS ORDERED: CYANOCOBALAMIN 1,000 MCG/ML VIAL IM SCH (13:00)
[2025-02-21] MEDS ORDERED: LORazepam 2 MG/ML VIAL IV ONE (15:00)
--- NOTE | 2025-02-21 15:00 | NUR ---
PATIENT DOWN FOR MRI WITH EDD HASSAN.
--- NOTE | 2025-02-21 17:38 | NUR ---
PATIENTS FAMILY AT THE BEDSIDE AND PER PROVIDER UPDATED ON MRI RESULTS. MD WILL BE DOWN TO DISCUSS PLAN OF CARE MOVING FORWARD. PATIENTS FAMILY WAITING IN THE ROOM FOR UPDATE FROM THE MD. PATIENTS FAMILY ASKING QUESTIONS REGARDING PROGNOSIS, THIS RN HAS DEFERED QUESTIONS TO PROVIDER TO ANSWER. CASE AMANGEMENT AWARE AND WILL BE IN TO TALK WITH FAMILY WITH MD.
--- NOTE | 2025-02-21 17:55 | NUR ---
Met with family, Dr. Monzon, and Geneva HASSAN. Discussed pts status. Per family pt would not want to have CPR or intubation. POLST form reviewed with son, Ambrose and DIL. Form completed with selective treatment and DNR. Son sign and Dr. Monzon signed. Form faxed to the registry. Copy made and sent to medical records.
--- NOTE | 2025-02-21 18:31 | NUR ---
PATIENT FAMILY IN AND CARE CONFERENCE DONE WITH RN, MD, AND CASE MANAGMEENT. PATIENT WILL HAVE ECHOCARDIOGRAM AND CONTINUE TTREATMENT IS AND GIVE PATIENT MORE TIME. PATIENT HAS REMAINED OBTUNDED TODAY WITH OCCASIONAL FIDGITING. FAMILY IS AGREEABLE TO PLAN OF CARE. PATIENT IS NOW A DNR/DNI.
--- NOTE | 2025-02-21 18:45 | NUR ---
RECEIVED REPORT FROM DAY SHIFT RN. PATIENT IS RECEIVING ECHO AT THIS TIME. ANTUNEZ EMPTIED. INTAKE AND OUTPUT RECORDE. NAD NOTED. CALL LIGHT IN REACH. BED ALARM ON FOR SAFETY.
--- NOTE | 2025-02-21 19:40 | NUR ---
PATIENT NOTED TO BE TURNED IN BED NEARLY SIDEWAYS, THIS RN AND HOUSE SYPERVISOR RN REPOSITIONED AND FLOATED HIPS WITH PILLOWS. PATIENT DID NOT OPEN EYES BUT WAS NOTED TO ARCH BROWS WITH CARE. ASSESSMENT COMPLETE, ORAL CARE AND ANTUNEZ CARE COMPLETE.
--- NOTE | 2025-02-21 22:52 | NUR ---
PATIENT RESTING IN BED, EYES CLOSED, MILDLY RESTLESS WITH HER ARMS, NOT INTERACTING WITH STAFF. NO VERBAL RESPONSE TO STAFF TALKING TO HER.
[2025-02-22] VITALS (14 sets, daily range): BP systolic 86–117; BP diastolic 57–83
--- NOTE | 2025-02-22 00:30 | NUR ---
PATIENT REPOSITIONED. PATIENT DID NOT INTERACT WITH STAFF, NON VERBAL.
--- NOTE | 2025-02-22 04:46 | NUR ---
PATIENT PLACED TO BIPAP AT THIS TIME BY Shama PHELPS, 1:1 SITTER AT BEDSIDE.
[2025-02-22 05:27] LABS: BASOPHILS 0.5 % (0.1-1.2); EOSINOPHILS 0.6 % (0.7-5.8); LYMPHOCYTES 10.4 % (19.3-51.7); MCH 35.6 PG (25.6-32.2); MCHC 34.6 g/dL (32.2-35.5); MCV 103.0 fL (79.4-94.8); MONOCYTES 16.4 % (4.7-12.5); NEUTROPHILS 71.9 % (34.0-71.1); RBC 3.31 M/uL (3.93-5.22)
[2025-02-22 05:47] LABS: ALT (SGPT) 20.0 U/L (14-59); AST (SGOT) 33.0 U/L (15-37); GLOMERULAR FILTRATION RATE,EST 81.0 mL/min (>60); PROTEIN, TOTAL 5.6 g/dL (6.4-8.2); UREA NITROGEN 8.0 mg/dL (7-18)
--- NOTE | 2025-02-22 06:33 | NUR ---
PATIENT TAKEN OFF BIPAP AT THIS TIME SHE CONTINUED TO STRUGGLE TO PULL OFF AND HEART RATE SUSTAINING IN 140'S/MIN. ONCE OFF AND PLACED TO N.C. 2L OXYGEN, HEART RATE NOW 93/MIN.
[2025-02-22] MEDS ORDERED: POTASSIUM CHLORIDE 40 MEQ,LIDOCAINE HCL 1% 40 MG in DEXTROSE 5% 250 ML IV ONE ×2 (06:45→11:00)
--- NOTE | 2025-02-22 06:48 | NUR ---
CALLED TO REPORT POTASSIUM OF 2.8, NEW ORDER FOR 80 MEQ IV. ORDER PLACED.
--- NOTE | 2025-02-22 08:00 | NUR ---
REPORT RECIVED FROM ACQUISITION ANALYST RN. PATIENT ON NASAL CANNULA AT THIS TIME. RN PLACED PATIENT BACK ON BIPAP. PATIENT HAVE VERY DIMINISHED LUNG SOUNDS THROUGHT THIS RMORNING. IMPROVED WITH BIPAP. NEW ORDERS FOR ABG. PATIENT HAS REMAINED OBTUNDED THROUGH THE NIGHT.
--- NOTE | 2025-02-22 08:30 | NUR ---
PATIENT FAMILY IN TO SEE HER AND UPDATED ON PLAN OF CARE. SITTER AT THE BEDSIDE WHILE PATIENT ON BIPAP.
[2025-02-22] MEDS ORDERED: ENOXAPARIN SODIUM 40 MG/0.4 ML SYR SUB-Q SCH (09:00)
--- NOTE | 2025-02-22 09:15 | NUR ---
PER MD HOLD LASIX UNTIL POTASSIUM IS COMPLETE AND LABS HAVE BEEN CHECKED.
[2025-02-22 09:54] LABS: BASE EXCESS, BLOOD GAS 9.7 mmol/L (-2-2); HCO3, BLOOD GAS 33.4 mmol/L (22-26); O2 SATURATION, BLOOD GAS 97.3 % (95.0-100.0); OXYGEN RECEIVED, BLOOD GAS 100.0; PCO2, BLOOD GAS 40.0 mmHg (35-45); PH, BLOOD GAS 7.53 (7.35-7.45); PO2, BLOOD GAS 78.0 mmHg (80-100); TOTAL CO2, BLOOD GAS 34.6
--- NOTE | 2025-02-22 11:49 | NUR ---
PATIENT IN ON LEFT SIDE WITH PILLOW SUPPORT. TWO RNS IN TO CHANGE DRESSINGS ON COCCYX AND REPOSITION. PATIENT ON NASAL CANNULA THIS TIME. PLAN OF CARE REVIEWD WITH MD. PATIENT REMAINS OBTUNDED. CLOSE MONITORING FOR PATIENT SAFETY.
--- NOTE | 2025-02-22 13:56 | NUR ---
PATIENT REPOSITIONED TO RIGHT SIDE WITH PILLOW SUPPORT. AM CARES DONE. PATIENT CLEANSED WITH CHLORHEXIDINE WIPES, ANTUNEZ CATH CARE DONE, HAIR AND TEETH BRUSHED. EYES WIPED WITH WASH CLOTH.
--- NOTE | 2025-02-22 16:36 | NUR ---
SPOKE WITH MD. PER MD WILL WAIT TO DO REPORT ABG UNTIL THE MORNING. UPDATE OF PATIENTS CONDITION. PATIENT DID HAVE EYES OPEN SEVERAL TIME, BUT NO REPOSNSE TO STAFF. PATIENT DOES NOT LOOK AT OR ACKNOIWEDGE STAFF. PATIENT DOES NOT FOLLOW ANY COMMANDS. PATIENT REORIUENTED TO PLACE AND SITUATION INCASE SHE CAN HEAR STAFF.
[2025-02-22 17:11] LABS: GLOMERULAR FILTRATION RATE,EST 80.0 mL/min (>60); UREA NITROGEN 11.0 mg/dL (7-18)
--- NOTE | 2025-02-22 18:15 | NUR ---
PATIENT FAMILY HAS BEEN IN AT THE BEDSIDE VISITING. UPDATED ON PATIENTS LABS AND TODAYS PLAN OF CARE. NO OTHER QUESTIONS AT THIS TIME.
--- NOTE | 2025-02-22 19:35 | NUR ---
BEDSIDE REPORT WITH KAILEY DEGROOT, PATIENT REPOSITIONED AT THIS TIME, PATIENTS EYES ARE OPEN, SHE CONTINUES TO BE NON-VERBAL. NO DISTRESS NOTED AT THIS TIME.
[2025-02-22] MEDS ORDERED: ACETAMINOPHEN 650 MG SUPP PR PRN (21:00)
--- NOTE | 2025-02-22 21:02 | NUR ---
CALLED FOR UPDATES, ASKED TO HAVE TYLENOL PO CHANGED TO CT. HE AGREED, NEW ORDER PLACED, REPORTED TO THAT PATIENT HAS BEEN SUSTAINING HR UP TO 130'S, SHE FEELS WARM TO TOUCH, HER TEMP PER AXILLARY IS 98.2 F.
--- NOTE | 2025-02-22 21:45 | NUR ---
PATIENT REPOSITIONED, NOTED TO HAVE SMALL SOFT BM. CLEANED, TYLENOL SUPPOSITORY ADMINISTERED FOR NON-VERBAL FACE PAIN SCALE 4/10.
--- NOTE | 2025-02-22 23:33 | NUR ---
PATIENT REPOSITIONED, ORAL CARE AND CHAP STICK APPLIED. PATIENT OPENS EYES TO CARES, SHE REMAINS NON-VERBAL.
[2025-02-23] VITALS (14 sets, daily range): BP systolic 81–103; BP diastolic 57–74
--- NOTE | 2025-02-23 00:15 | NUR ---
PATIENT RESTING QUIETLY IN BED EYES CLOSED, ALERT TO RN ADJUSTING B/P CUFF, PATIENT REPOSITIONED AT THIS TIME. PATIENT OPENS EYES TO CARES BUT CONTINUES TO BE NON-VERBAL AND DOES NOT OR IS UNABLE TO FOLLOW DIRECTIONS FOR ASSESSMENT OF STRENGHTH/RANGE OF MOTION.
--- NOTE | 2025-02-23 02:19 | NUR ---
PATIENT RESTING QUIETLY IN BED, RESPIRATORY RATE 20/MIN. PATIENT REPOSITIONED.
[2025-02-23 05:14] LABS: BASOPHILS 0.4 % (0.1-1.2); EOSINOPHILS 1.0 % (0.7-5.8); LYMPHOCYTES 11.5 % (19.3-51.7); MCH 35.0 PG (25.6-32.2); MCHC 33.3 g/dL (32.2-35.5); MCV 105.1 fL (79.4-94.8); MONOCYTES 15.4 % (4.7-12.5); NEUTROPHILS 71.4 % (34.0-71.1); RBC 3.14 M/uL (3.93-5.22)
--- NOTE | 2025-02-23 05:28 | NUR ---
PATIENT REPOSITIONED, ORAL CARE PROVIDED. PATIENT RESTING QUIETLY IN BED NO DISTRESS NOTED. R.T. INTO BEDSIDE FOR AM ABG ORDER.
[2025-02-23 05:37] LABS: ALT (SGPT) 20.0 U/L (14-59); AST (SGOT) 21.0 U/L (15-37); GLOMERULAR FILTRATION RATE,EST 79.0 mL/min (>60); PHOSPHORUS, INORGANIC 3.2 mg/dL (2.5-4.9); PROTEIN, TOTAL 5.2 g/dL (6.4-8.2); UREA NITROGEN 13.0 mg/dL (7-18)
[2025-02-23 05:43] LABS: BASE EXCESS, BLOOD GAS 12.4 mmol/L (-2-2); HCO3, BLOOD GAS 36.7 mmol/L (22-26); O2 SATURATION, BLOOD GAS > 100.0 % (95.0-100.0); OXYGEN RECEIVED, BLOOD GAS 98; PCO2, BLOOD GAS 44.5 mmHg (35-45); PH, BLOOD GAS 7.52 (7.35-7.45); PO2, BLOOD GAS 125 mmHg (80-100); TOTAL CO2, BLOOD GAS 38.1
--- NOTE | 2025-02-23 06:16 | NUR ---
PATIENT RESTED WELL OVER NIGHT, SHE WAS MORE ALERT TO STAFF IN ROOM FOR CARES, PATIENT GIVEN ONE PRN TYLENOL SUPPOSITORY FOR NON-VERBAL PAIN SCALE 4/10, ON REASSESSMENT PATIENT WAS SLEEPING. PATIENT HAD ON MEDIUM SOFT BM OVER NIGHT, SHE HAS HAD LOW URINE OUT 10-15ML/HR OVER SHIFT. SHE HAS HAD SOFT B/P OVER NIGHT, MORE SO AFTER SCHEDULED LOPRESSOR IV AT 2200. ANTUNEZ CARE COMPLETE, ORAL CARE PROVIDED AND Q2 HOUR AND PRN POSITION CHANGES TO PROTECT SKIN FROM FURTHER BREAKDOWN. ON ASSESSMENT THIS AM SHE IS MORE DROWSY AND LESS ALERT TO STAFF CARES. SHE CONTINUES TO BE NON-VERBAL. ABG COMPLETE THIS AM BY Shama
--- NOTE | 2025-02-23 08:10 | NUR ---
PT DOES NOT RESPONE TO VERBAL COMMUNICTATION AT THIS TIME. ORAL MEDICATION ON HOLD AT THIS TIME. ASSESSMENT COMPLETED AND PT TURNED TO RT SIDE.
--- NOTE | 2025-02-23 08:52 | NUR ---
PT MOVED TO ROOM 126 FROM 130 AT THIS TIME.
[2025-02-23] MEDS ORDERED: FUROSEMIDE 40 MG/4 ML VIAL IV SCH (09:00)
--- NOTE | 2025-02-23 11:14 | NUR ---
BEDBATH COMPLETED, PT HAS EYES OPEN, NOVERBAL AT THIS TIME. PT FLOATED AT THIS TIME OFF HER HIPS AND BUTT. HEART RATE RANGES FROM 40'S TO THE 130"S BP SBP REMAIN LESSTHAN 100.
--- NOTE | 2025-02-23 12:13 | NUR ---
PT APPEARS TO BE COMFORTABLE AT THIS TIME, DOES NOT OPWEN HER WHEN SPOKEN TOO.
--- NOTE | 2025-02-23 14:17 | NUR ---
PT NON VERBAL AT THIS TIME, REFUSES TO OPEN MOUTH FOR ORAL CARE OR TO HAVE A MOIST SPONGE TO HAVE A BIT OF FLUIDS. WARM BLANKET PLACED ALSO AT THIS TIME. PT EYES OPEN, HAVE TV ON FOR HER TO WATCH SOMETHING. IT IS ON [employer] CHANNEL.
--- NOTE | 2025-02-23 14:57 | NUR ---
PT FAMILY INTO VISIT AT THIS TIME. ALL QUESTIONS ANSWERED. PT IS NONVERBAL WITH THEM ALSO, BUT IS MORE ALERT AT THIS TIME.
--- NOTE | 2025-02-23 16:15 | NUR ---
PT TURNED TO RIGHT SIDE ALEX ACTIVITY WELL, EYES CLOSED, FAMILY HAS LEFT FOR THE DAY. THEY WHERE HAPPY THAT HER EYES WHERE OPEN TODAY, BUT STILL NO VERBALE COMMUNICATION NOTED FOR ANYONE TODAY. ANTUNEZ DRAINING CLEAR IN COLOR URINE.
--- NOTE | 2025-02-23 18:14 | NUR ---
pt turned to lt side at this time, eye open nonverbale with staff even when stf are talking to her.
--- NOTE | 2025-02-23 20:08 | NUR ---
PATIENT RESTING QUIETLY IN BED, EYES CLOSED RESPIRATIONS REGULAR/SHALLOW 22/MIN. NO DISTRESS NOTED AT THIS TIME.
--- NOTE | 2025-02-23 20:30 | NUR ---
PATIENT REPOSITIONED, ORAL CARE AND FACE WASHED DONE.
[2025-02-24] VITALS (15 sets, daily range): BP systolic 93–109; BP diastolic 58–79
--- NOTE | 2025-02-24 00:08 | NUR ---
PATIENT REPOSITIONED, ASSESSMENT COMPLETE. PATIENT OPENS EYES FOR CARES, BUT DOES NO GIVE ANY VERBAL RESPONSES TO QUESTIONS.
[2025-02-24 05:48] LABS: BASOPHILS 0.8 % (0.1-1.2); EOSINOPHILS 1.0 % (0.7-5.8); LYMPHOCYTES 13.8 % (19.3-51.7); MCH 35.0 PG (25.6-32.2); MCHC 33.2 g/dL (32.2-35.5); MCV 105.6 fL (79.4-94.8); MONOCYTES 10.9 % (4.7-12.5); NEUTROPHILS 73.2 % (34.0-71.1); RBC 3.54 M/uL (3.93-5.22)
[2025-02-24 06:04] LABS: ALT (SGPT) 19.0 U/L (14-59); AST (SGOT) 26.0 U/L (15-37); GLOMERULAR FILTRATION RATE,EST 79.0 mL/min (>60); PROTEIN, TOTAL 5.8 g/dL (6.4-8.2); UREA NITROGEN 20.0 mg/dL (7-18)
--- NOTE | 2025-02-24 06:26 | NUR ---
PATIENT HAD GLUCOSE LEVEL OF 69 ON AM LABS, HALF AMP D50 IV ADMINISTERED. PATIENT REPOSITIONED.
--- NOTE | 2025-02-24 06:28 | NUR ---
PATIENT HAS RESTING QUIELTY OVER NIGHT, NO DISTRESS NOTED. REPOSITIONED Q2 HOURS AND PRN, ORAL CARE PROVIDED, ANTUNEZ CARE DONE, WASHED FACE. VITAL SIGNS HAVE BEEN STABLE OVERNIGHT. PATIENTS DAUGHTER CALLED FOR UPDATE THIS AM. SHE REPORTS SHE WILL BE UP TO VISIT PATIENT ON HER LUNCH AND AFTER WORK TODAY.
--- NOTE | 2025-02-24 07:20 | NUR ---
report from dafne carrillo, pt in bed with call light. hr 112, resp 19.
--- NOTE | 2025-02-24 08:23 | NUR ---
AXILLARY TEMP TAKEN WNL, PT ASSESSMENT, PT UNABLE TO SPEAK OR ANSWER QUESTIONS. OPENS EYES TO THIS RN VERBAL REQUEST TO OPEN - BUT CAN NOT RESPOND OR FOLLOW ANY PURPOSEFULL DIRECTION. UA SENT FROM ANTUNEZ TUBE TO LAB PER ORDER. PT RESP 30'S, RESTING IN BED.
[2025-02-24 08:25] LABS: BLOOD/HGB, URINE NEGATIVE (Negative); KETONE, URINE >=80 (Negative); LEUK ESTERASE, URINE NEGATIVE (negative); NITRITE, URINE NEGATIVE (negative)
[2025-02-24] MEDS ORDERED: MAGNESIUM SULFATE 2 GM/50 ML BAG IV ONE (08:30)
[2025-02-24 08:38] LABS: BACTERIA, URINE NONE SEEN /hpf (negative); CASTS, URINE HYALINE 1+ \\lpf; CRYSTALS, URINE NONE SEEN (0-1+); EPITHELIAL CELLS, URINE 0 /lpf (0-1+); REFLEX CULTURE, URINE No (No)
[2025-02-24] MEDS ORDERED: FUROSEMIDE 40 MG/4 ML VIAL IV SCH (09:00)
[2025-02-24] MEDS ORDERED: FUROSEMIDE 20 MG/2 ML VIAL IV SCH (09:00)
--- NOTE | 2025-02-24 09:00 | NUR ---
AT BEDSIDE WITH DR LUCERO FOR ROUNDS WITH PT. PT IS UNABLE TO TALK OR FOLLOW COMMANDS, DOES OPEN EYES AND LOOK AT .
--- NOTE | 2025-02-24 10:30 | NUR ---
Attempted to speak with Camilla. Pt is resting with her eyes open. She does not answer when asked if she is feeling better. Pt does nod head "yes", when asked if she knows she is in the hospital. No needs from CM at this time.
--- NOTE | 2025-02-24 11:30 | NUR ---
Spoke with KIT Ceja. She states pts other son will be here tomorrow. We spoke a small amount about plan for future. Pt and family do not have money for placement. Pt would need to go to a SNF as a therapy pt. This is unlikely as pt is not able to speak or follow directions. Other option would be to go home on hospice. I did not discuss this with Brenna. Dr. Monzon did discuss comfort care with family on Monday.
--- NOTE | 2025-02-24 11:54 | NUR ---
PT KIT ROSAS HERE, PRINTED INFO ON AFIB, AND CVA GIVEN TO HER FOR FAMILY. PT NOT RESPONSIVE.
--- NOTE | 2025-02-24 16:12 | NUR ---
DR ROQUE HERE - REVIEW ECHO REPORT, REVIEW VITALS AND EMAR- SEE NEW ORDERS. PT REPOSITIONED.
--- NOTE | 2025-02-24 16:40 | NUR ---
dr goldsmith in room with pt and her family hawa. pt non verbal but opens eyes and looks around. howard draining clear yellow urine. pt does not follow commands, moves both arms spontaneously.
--- NOTE | 2025-02-24 18:15 | NUR ---
CHD BATH WAS COMPLETED ON THIS PT, WELL A PARTIAL LINEN CHANGE, DIAPER CHANGE, YESI CARE, AND THIS COLLATERAL SPECIALIST ASKED A RN TO COME IN AND CHANGE THE BANDAGES ON THIS PT'S BOTTOM, DUE TO HAVING A BOWEL MOVEMENT AND THE COVERS GETTING SOILED. ONE VISITOR WAS IN THE ROOM, FAMILY MEMBER. PT WAS AWAKE WHILE BATHING WAS BEING COMPLETED, BUT WAS NOT TRACKING VERBAL COMANDS AT ALL, NOR REQUESTS OF ANY KIND. PT'S DRAW SHEET AND PHI WERE CHANGED WELL FOR CLEANLINESS. CALL LIGHT IS WITHIN PT REACH, AND PT HAS BED LOW, RAILS UP, FALL MATS DOWN, AND CURTAIN OPEN FOR SAFETY.
--- NOTE | 2025-02-24 18:43 | NUR ---
IT LOOKED THOUGH THIS PT HAD TWO BOWEL MOVEMENTS, THE FIRST BEING FARTHER FROM THE ANUS AND DARK BROWN, AND THEN THE FECAL MATTER ATTACHED TO THE ANUS BEING DARKER AND STICKIER. REPORTED TO THE NURSE.
--- NOTE | 2025-02-24 18:44 | NUR ---
guiac stool from pt inc. bm with landscape crew leader. stool is dark with a yellow residue - negative guiac stool - soft, does not look like blood or tar to me. confirmed with bedside test. negative. pt resting in bed left side with call light.
[2025-02-25] VITALS (11 sets, daily range): BP systolic 94–115; BP diastolic 67–79
[2025-02-25 05:37] LABS: BASOPHILS 1.1 % (0.1-1.2); EOSINOPHILS 0.8 % (0.7-5.8); LYMPHOCYTES 14.7 % (19.3-51.7); MCH 34.9 PG (25.6-32.2); MCHC 33.3 g/dL (32.2-35.5); MCV 104.8 fL (79.4-94.8); MONOCYTES 10.1 % (4.7-12.5); NEUTROPHILS 73.0 % (34.0-71.1); RBC 3.55 M/uL (3.93-5.22)
[2025-02-25 05:51] LABS: SMEAR REVIEW BLOOD SEE COMMENTS
[2025-02-25 05:56] LABS: ALT (SGPT) 17.0 U/L (14-59); AST (SGOT) 26.0 U/L (15-37); GLOMERULAR FILTRATION RATE,EST 73.0 mL/min (>60); PROTEIN, TOTAL 6.0 g/dL (6.4-8.2); UREA NITROGEN 23.0 mg/dL (7-18)
--- NOTE | 2025-02-25 06:59 | NUR ---
PATIENT HAS BEEN ALERT MOST OF NIGHT, SHE HAS BEEN TURNED Q2 HOURS AND PRN FOR COMFORT, GAVE SUPPOSITORY OF TYLENOL AT HS, SHE HAS BEEN RESTING IN BED RELAXED, 0/10 PAIN NON-VERBAL PAIN SCALE, SHE HAS BEEN ABLE TO SAY HER NAME ONCE AT START OF SHIFT, AND WHILE RE-ORIENTING WITH EACH INTERACTION SHE NODS HER HEAD YES AND SAYS "OK". ORAL CARE AND ANTUNEZ CARE HAS BEEN PROVIDED OVER THIS SHIFT. UPDATED CARRY DAUGHTER IN LAW THIS AM. PLAN FOR FAMILY CARE CONFERENCE THIS AFTERNOON.
--- NOTE | 2025-02-25 07:20 | NUR ---
DR ROQUE HERE, ASKED RN TO HAVE THERAPIES, PT/OT/ST EVAL TODAY.
--- NOTE | 2025-02-25 07:30 | NUR ---
BEDSIDE REPORT FROM DUSTIN - PT ALERT - NOT ORIENTED. PT ASKED TO STATE NAME AND AFTER A WAIT SHE WHISPERS PEACE. SHE IS UNABLE TO SAY OR ANSWER ANY ORIENTATION QUESTIONS. SHE SHRUGS SHOULDERS AND SAYS YES, SHE LOOKS AT YOU WHEN SPEAKING. SAYS NO WHEN ASKED IF SHE IS PAINFUL. CALL LIGHT IN REACH. RN CALLED PEREZ TO UPDATE, SHE STATED THAT THEY WILL BE IN WITH BOTH SONS THIS AFTERNOON AROUND 4 PM.
--- NOTE | 2025-02-25 09:12 | NUR ---
PT INC OF BM IN BED, PT ASSISTED MAX ASSIST TO SIT UP IN BED, STAND MAX ASSIST TO CLEAN YESI AREA THEN PIVOT TRSF LIFT TO CHAIR MAX ASSIST. PT NOT FOLLOWING DIRECTIONS - ST AILEA PRESENT. ORAL SWABS ATTEMPTED - PT BITES DOWN AND DOES NOT FOLLOW DIRECTIONS WITH SWAB. PT IN CHAIR WITH ST FOR EVAL. BED LINEN CHANGED AND PT REMAINS IN CHAIR WITH CALL LIGHT.
--- NOTE | 2025-02-25 09:30 | NUR ---
Pt sitting in chair. She answers, "yes" to all questions. Does not seem to understand any questions. I returned a phone call to her DIL, Brenna. She had requested to meet with JORDON and the today at 4 pm with family members. I let her know agreed to this time.
--- NOTE | 2025-02-25 10:28 | NUR ---
pt up in chair visible to rn, chair alarm under bottom with call light in reach, pt repositioned - says "no" "No" but settles when chair alarm is silent.
--- NOTE | 2025-02-25 12:17 | NUR ---
PT UP IN CHAIR - RN ASSISTED PT TO MAX ASSIST TRSF BACK TO BED, 2ND RN IN PT WAS RESISTANAT AND RE ASSURED THAT SHE WAS SAFE AND GOING BACK TO BED WOULD GIVE HER SKIN A REST AND LET HER REPOSITION. PT TO BED ON RIGHT SIDE WITH PILLOW AND WAFFLE MATTRESS. PILLOW BETWEEN LEGS, ANTUNEZ EMPTIED 125 ML DARK URINE, PT BED ALARM ON, DOOR OPEN AND VISIBLE TO RN, HR 121, RESP 19, PT STATES i DONT WANT TO WHEN ASKED TO STAND BACK TO BED - HOWEVER SHE STOOD WITH ASSIST AND 2 PERSON ASSIST TO REPOSITION IN BED. ATTENDS TULIO HOFFMAN TO GRAVITY.
--- NOTE | 2025-02-25 13:36 | NUR ---
pt son from out of town here, this rn introduced self and gave update on pt. and activities of day with st/pt/ot. rn available if needed.
--- NOTE | 2025-02-25 16:00 | NUR ---
Met with family; two sons, DIL who is the POA, and pts brother in [place] on speaker phone. Brother has multiple questions about pts health, strokes, alcohol use, detox, deficits from strokes, etc. Visit was 55 minutes. All questions were answered about medical per Dr. Jones and plan to move forward. I explained options of pt going home with family or to placement with hospice. Per family, they all work and would not be able to provide care in the home. They would prefer placement. Pt is not able to follow commands at this time and would need to go as a hospice patient. Brother is struggling with the information. Sons would like to wait and allow pts brother to make the decision for hospice. They do state they plan on mom going to hospice, but would prefer uncle be included in the decision. Will fu with [facility] tomorrow as this is the place pt had requested on admission.
--- NOTE | 2025-02-25 16:33 | NUR ---
boths sons, brother mario on conf. call, dtg in law hawa, may bonnerner lety, and dr. goldsmith in for care conf. pt resting in bed, turned to right side, howard to gravity with sm amt of dark urine, pt not really talking, picking at air, does reach over to son with hand and reaches out. does not follow commands. see and may planners notes for info on plan moving forward.
--- NOTE | 2025-02-25 18:08 | NUR ---
rn in with pt and family - repositioned, howard to gravity - family plan for comfort and move to wbt eventually. family thankful and pt is holding hands reaching in air and picking at monitors. seems confused, aphasic, but comforted with family at side. call light available to all - they deny needs. vitals charted.
--- NOTE | 2025-02-25 20:15 | NUR ---
ROUNDING FOR ASSESSMENT, PATIENT ABLE TO SAY HER NAME, AND ANSWER YES AND NO, UNABLE TO ASSESS IF SHE IS GIVING RESPONSE PURPOSEFUL AT TIMES. SHE IS ALERT. SHE SCORES 0/10 PAIN ON NON-VERBAL PAIN SCALE. SHE ALSO SAYS "NO" WHEN ASKED IF SHE IS IN PAIN.
--- NOTE | 2025-02-25 21:00 | NUR ---
PATIENT REPOSITIONED, ORAL CARE, AND ANTUNEZ CARE PROVIDED. SHE WAS NOTED TO HAVE A SMEAR OF STOOL, PATIENT CLEANED WELL. PATIENT ALERT.
--- NOTE | 2025-02-25 23:06 | NUR ---
ROUNDING, PATIENT IS ALERT, THIS RN SAID, "CUCO HAND" PATIENT SAID, "HI" THEN WAS ASKED IF SHE IS HAVING ANY PAIN SHE SAID, "NO" AND SHRUGGED HER SHOULDERS, PATIENT REMINDED THAT THAT SHE IS AT [facility], SHE SAID, "YEAH." AND NODDED HER HEAD "YES", PATIENT ASKED, "DO YOU NEED ANYTHING?" PATIENT SAID, "NO." AND SHOCK HER HEAD "NO", THEN SAID, "THANK YOU."
[2025-02-26] VITALS (7 sets, daily range): BP systolic 107–134; BP diastolic 64–89
--- NOTE | 2025-02-26 00:32 | NUR ---
PATIENT RESTING IN BED EYES OPEN, WARM BLANKET PROVIDED, PATIENT RE-ORIENTED TO PLACE AND TIME AND ENCOURAGED TO TRY TO SLEEP. SHE SAID, "I WILL." ASSESSMENT COMPLETE, NO NEW CONCERNS AT THIS TIME.
--- NOTE | 2025-02-26 01:20 | NUR ---
PATIENT CONTINUES TO BE ALERT, ENCOURAGE PATIENT TO TRY TO SLEE IT IS AFTER 0100 IN THE MORNING, SHE SAID, "I WILL." PATIENT REPOSITIONED AT THIS TIME.
--- NOTE | 2025-02-26 02:53 | NUR ---
ROUNDING, PATIENT CONTINUES TO BE AWAKE/ALERT. SHE CONTINUES TO TRY TO TALK, SHE IS NOT ABLE TO MAKE FULL SENTENCES, SHE IS NOT ABLE TO FINISH THOUGHTS VERBALLY. PATIENT REPOSITIONED AT THIS TIME.
--- NOTE | 2025-02-26 05:00 | NUR ---
PATIENT REPOSITIONED, TALKED WITH PATIENT, SHE CONTINUES TO VERBALIZE WORDS, SOMETIMES SEEMS APPROPRIATE OTHER TIMES NOT AT ALL. CARRY DAUGHTER IN LAW OF PATIENT AND POA CALLED FOR UPDATE THIS AM, DISCUSSED THE OVER OIL WELL FISHING TOOL OPERATOR AND CURRENT STATUS, THIS RN DID VOICE NEW CONCERN OF PATIENT NOT SLEEPING PAST TWO NIGHTS, SHE SAID TIHS HAS HAPPENED WHILE HOSPITALIZED IN PAST AND SHE BECOMES VERY DIFFICULT TO CARE FOR, WITH DELIRIUM.
--- NOTE | 2025-02-26 05:39 | NUR ---
UPDATED VIA TELEPHONE IN REGARDS TO PATIENT NOT SLEEPING PAST TWO NIGHTS, DAUGHTER IN LAW CALLED THIS AM FOR UPDATE DISCUSSED PATIENT NOT SLEEPING, CARRY SAID SHE HAS DONE THIS IN PAST WHILE IN HOSPITAL AND BECOMES VERY DELIRIOUS, AGITATED, ANGRY AND DIFFICULT TO MANAGE.
[2025-02-26] MEDS ORDERED: LORazepam 2 MG/ML VIAL ONE (06:15)
[2025-02-26] MEDS ORDERED: LORazepam 2 MG/ML VIAL IV ONE (06:15)
--- NOTE | 2025-02-26 06:36 | NUR ---
0530 PATIENT SET OFF BED ALARM, LAB STAFF AND THIS RN INTO ASSIST PATIENT BACK INTO BED SHE HAD HER LEGS OVER THE SIDE RAIL AND SITTING UP TRYING TO GET OUT OF BED. PATIENT THEN AGITATED AND ANGRY, VERBALIZED, "I AM NOT GETTING BACK IN BED, I AN GETTING UP TO WALK." CALLED, NEW ORDER FOR ATIVAN ONE TIME, STAFF SITTING IN ROOM UNTIL PATIENT SETTLES DOWN AND IS CONSIDERED SAFE. BED ALARM ON
--- NOTE | 2025-02-26 07:45 | NUR ---
PT RESTING IN BED ON BACK WITH EYES CLOSED. RR EVEN AND UNLABORED. HR VARIABLE ON MONITOR, REMAINS IN AFIB. SPO2 STABLE ON ROOM AIR. BED ALARM ON.
--- NOTE | 2025-02-26 07:48 | NUR ---
TAKING OFF RT SERVICE. PLEASE CALL WITH CONCERNS OR O2 USE.
--- NOTE | 2025-02-26 08:30 | NUR ---
SON AT BEDSIDE - PT REMAINS RESTING IN BED WITHOUT SIGNS OF DISTRESS/DISCOMFORT. ALL QUESTIONS ANSWERED. BED ALARM ON, FALL MAT AT SIDE.
--- NOTE | 2025-02-26 09:30 | NUR ---
PT REPOSISTIONED IN BED, AM ASSESSMENT COMPLETE. PT RESTING WITHOUT DISTRESS. MINIMAL RESPONSE TO ORAL CARE. VS STABLE ON MONITOR. ROOM TIDIED.
--- NOTE | 2025-02-26 10:45 | NUR ---
Attempted to speak with Camilla. She is sleeping. She did receive ativan for agitation. I spoke with [facility] and they are cont. to look at this pt for admit. Family will call around 1 pm today to let us know if they want pt to have hospice. They do want placement to a SNF.
--- NOTE | 2025-02-26 10:50 | NUR ---
VISITED DURING SPIRITUAL CARE ROUNDS. PT APPEARED TO BE SLEEPING, NO FAMILY PRESENT. DID NOT DISTURB. PROVIDED PRAYER.
--- NOTE | 2025-02-26 12:00 | NUR ---
PT REPOSISTIONED IN BED. CONTINUES TO REST WITHOUT S/S OF DISTRESS. ORAL CARE COMPLETE. AM MEDICATIONS HELD AND PLACED IN RETURN BOX TO PHARMACY AFTER TALKING TO MD AND CM REGARDING PLAN OF CARE.
[2025-02-26] MEDS ORDERED: LORazepam 0.5 MG TAB PO PRN (13:00)
[2025-02-26] MEDS ORDERED: ARTIFICIAL TEARS 15 ML BTL OU PRN (13:00)
[2025-02-26] MEDS ORDERED: SCOPOLAMINE 1 MG/3 DAYS PATCH 1 EACH TDSY TD SCH (13:00)
[2025-02-26] MEDS ORDERED: ATROPINE SULFATE 1% OPTH DROPS SL PRN (13:00)
[2025-02-26] MEDS ORDERED: LORazepam 2 MG/ML ML PO PRN (13:30)
[2025-02-26] MEDS ORDERED: MORPHINE SULFATE 20 MG/ML SYR PO PRN (13:30)
--- NOTE | 2025-02-26 13:41 | NUR ---
PER MD PT TRANSISTIONED TO COMFORT CARE. PT COMFORTABLE IN BED, REPOSISTIONED AND ORAL CARE COMPLETE.
--- NOTE | 2025-02-26 15:00 | NUR ---
Called and spoke with KIT after I was unable to reach her son Ambrose. Ambrose did call me back and requested pt to go to comfort care. He requests we contact [facility] for pt to admit.
--- NOTE | 2025-02-26 15:45 | NUR ---
PATIENT TRANSITIONING TO COMFORT CARE. PATIENT REMAINS NPO DUE TO NOT ALERT AND ORIENTED ENOUGH TO EAT. FAMILY INDICATING PLACEMENT ON HOSPICE. NO FURTHER NUTRITION INTERVENTION AT THIS TIME. RD REMAINS AVAILABLE IF NEEDED.
--- NOTE | 2025-02-26 16:22 | NUR ---
PT AWAKE AND RESPONDING BUT DROWSY - PT WHISPERING AND CAN NOT UNDERSTAND AT TIMES. PT SOMETIMES ABLE TO ANSWER YES/NO, SOMETIMES NOT. PT STATES NO WHEN ASKED IF SHE NEEDS PAIN MEDICATION. ORAL CARE COMPLETE. PT HAS PILLOWS AT SIDE. BED ALARM ON.
--- NOTE | 2025-02-26 17:06 | NUR ---
PT AWAKE IN BED, RESTLESS. HARD TO UNDERSTAND BUT SHAKES HEAD "NO" WHEN ASKED ABOUT PAIN AND ANXIETY. PT TEARFUL WITH NOT BEING ABLE TO COMMUNICATE. DENIES WANTING REPOSISTIONED. BED ALARM ON.
--- NOTE | 2025-02-26 17:45 | NUR ---
PTS SON AND DIL UPDATED ON PT STATUS AND DAY. ALL QUESTIONS ANSWERED. AWARE OF TRANSFER TO ROOM 109.
--- NOTE | 2025-02-26 18:04 | NUR ---
VERBAL REPORT RECEIVED FROM ANASTACIO ISABEL RN AT 1751. PT TRANSFERRED TO MED-SURG ROOM 109 AT 1757 VIA BED. PT REST IN BED WITH EYES CLOSED, RESP EVEN AND UNLABORED. ANTUNEZ CATHETER IN PLACE TO GRAVITY BAG, EMPTIED IN CCU PRIOR TO TRANSFER. RAILS UP X4, FALL MAT NEXT TO BED, CALL LIGHT IN REACH.
--- NOTE | 2025-02-26 18:13 | NUR ---
BED ALARM ON.
--- NOTE | 2025-02-26 19:29 | NUR ---
PATIENT LAYING IN BED. VITAL SIGNS WERE TAKEN. PATIENT WAS PROVIDED WITH A WARM WASH CLOTH FOR HER FACE. PATIENTS CALL LIGHT IS WITHIN REACH AND NO FURTHER NEEDS AT THIS TIME.
--- NOTE | 2025-02-26 19:47 | NUR ---
PATIENT RESTING IN BED, APPEARS TO BE COMFORTABLE. FALL MATS IN PLACE. BED ALARM ON. CALL LIGHT IN REACH.
--- NOTE | 2025-02-26 20:10 | NUR ---
PATIENT APPEARS UNCOMFORTABLE IN BED. PRN PAIN MEDICATION ADMINISTERED. ANTUNEZ CATH CARE PROVIDED PER PROTOCOL. WARM BLANKETS PROVIDED. CALL LIGHT IN REACH.
--- NOTE | 2025-02-26 22:20 | NUR ---
PATIENT RESTING IN BED. x3 COCCYX DRESSINGS CHANGED AFTER WOUND CLEANSER USED. PATIENT APPEARS TO BE UNCOMFORTABLE. PRN TYLENOL ADMINISTERED. PATIENT ALEX WELL. PATIENT REPOSITIONED IN BED. NO FURTHER NEEDS. CALL LIGHT IN REACH.
--- NOTE | 2025-02-26 22:29 | NUR ---
PATIENTS BRIEF WAS CHANGED. ORAL CARE WAS DONE AND PATIENT WAS REPOSITIONED WITH PILLOWS ON THE RIGHT SIDE. PATIENT IS LAYING IN BED. CALL LIGHT WITHIN REACH AND NO FURTHER NEEDS AT THIS TIME.
--- NOTE | 2025-02-26 23:00 | NUR ---
PATIENT APPEARS TO BE RESTLESS IN BED AND REACHING FOR THINGS THAT ARE NOT THERE. PRN ANXIETY MEDICATION ADMINISTERED. NO FURTHER NEEDS. CALL LIGHT IN REACH.
--- NOTE | 2025-02-26 23:52 | NUR ---
PATIENT APPEARS RESTLESS IN BED. PILLOWS PLACED UNDER BILAT HIPS. PRN PAIN MEDICATION ADMINSITERED. NO FURTHER NEEDS. BED ALARM ON. FALL MATS IN PLACE.
--- NOTE | 2025-02-27 00:38 | NUR ---
PATIENT RESTLESS IN BED. APPEARS TO BE UNCOMFORTABLE. PRN PAIN MEDICATION ADMINSITERED. NO FURTHER NEEDS. CALL LIGHT IN REACH.
--- NOTE | 2025-02-27 01:03 | NUR ---
PATIENT RESTLESS IN BED AND REACHING OUT FOR THINGS THAT ARE NOT THERE. PRN ANXIETY MEDICATION ADMINSITERED. PATIENT PULLED R FOREARM JESSICA. RIGHT FOREARM IV REMOVED WNL WITH TIP INTACT. NO FURTHER NEEDS. CALL LIGHT IN REACH.
--- NOTE | 2025-02-27 01:33 | NUR ---
PATIENT RESTING IN BED ON BACK. APPEARS COMFORTABLE AT THIS TIME. CALL LIGHT IN REACH.
--- NOTE | 2025-02-27 01:49 | NUR ---
PATIENT SHOWING SIGNS OF AIR HUNGER. PRN MEDICATION ADMINISTERED. THIS RN REMAINS IN ROOM.
--- NOTE | 2025-02-27 03:14 | NUR ---
PATIENT RESTING IN BED, APPEARS COMFORTABLE AT THIS TIME. AGONAL BREATHING NOTED. PRN MEDICATION ADMINISTERED. CALL LIGHT IN REACH.
--- NOTE | 2025-02-27 04:27 | NUR ---
PATIENT RESTING IN BED WITH EYES CLOSED. AGONAL BREATHING NOTED, BUT OTHERWISE APPEARS TO BE RESTING COMFORTABLY. PRN MEDICATION ADMINSITERED. CALL LIGHT IN REACH. FALL MATS IN PLACE. BED ALARM ON.
--- NOTE | 2025-02-27 05:19 | NUR ---
ORAL CARE PROVIDED PER ORDER. CHAPSTICK APPLIED. THIS RN ASKED PATIENT IF SHE FELT BETTER AND SHE NODDED. PATIENT REPOSITIONED IN BED. CALL LIGHT IN REACH. BED ALARM ON.
--- NOTE | 2025-02-27 06:34 | NUR ---
PATIENT RESTING IN BED, AGONAL BREATHING NOTED. PRN MEDICATION ADMINISTERED. PATIENT DENIES FURTHER NEEDS. CALL LIGHT IN REACH.
--- NOTE | 2025-02-27 08:14 | NUR ---
ADMIN MORPHINE 5MG PO FOR AIR HUNGER.
--- NOTE | 2025-02-27 08:20 | NUR ---
Updated Rivka via phone regarding patient status. Patient has apneic spells and is non arousable to verbal stimuli. Urine output low throughout the night. Patient appears comfortable.
--- NOTE | 2025-02-27 09:57 | NUR ---
PATIENT IN BED AT THIS TIME. PARK NATURALIST ARLENE AND THIS PARK NATURALIST REPOSITIONED PATIENT, THIS PARK NATURALIST CHARTED I&O'S. CALL LIGHT WITHIN REACH, NO FURTHER NEEDS.
--- NOTE | 2025-02-27 10:00 | NUR ---
PT NOT AVAILABLE FOR VISIT. PROVIDED PRAYER.
--- NOTE | 2025-02-27 10:32 | NUR ---
Family at bedside to visit with patient. Patient remains unarousable to verbal stimuli. Respirations 16/min, intermittent apneic spells noted. Patient recently repositioned. No acute needs at this time. Family updated with plan of care. Coffee/snack tray to be brought to patient's room for family.
--- NOTE | 2025-02-27 11:39 | NUR ---
Patient repositioned at this time. Kinney cath care done with turkey cleaner assist. Patient remains unarousable, respirations 16/min, apneic spells noted. Brenna at bedside visiting. Patient has no notable distress.
--- NOTE | 2025-02-27 13:57 | NUR ---
Patient repositioned at this time. Patient's respirations are shallow and apneic, 12/min. Family at bedside. Patient appears comfortable. No current needs per family. Call light within patient reach.
--- NOTE | 2025-02-27 14:01 | NUR ---
INTO SEE FAMILY. ISRAEL AND JUNIOR AT BEDSIDE. TALKED WITH THEM ABOUT [facility] ACCEPTANCE. WE WILL PLAN TO POTENTIALLY DISCHARGE HER TO FACILITY TOMORROW VIA EMS NON EMERGENT TRANSPORT.
--- NOTE | 2025-02-27 15:28 | NUR ---
Repositioned patient at this time. Patient opened her eyes and stated "no" when I asked her is she was in pain and or short of breath. Family remains at bedside. No current needs.
--- NOTE | 2025-02-27 15:57 | NUR ---
PATIENT IN BED AT THIS TIME. CALENDER RUNNER CHARTED YESI CARE AND CATHETER CARE. CALL LIGHT WITHIN REACH, NO FURTHER NEEDS.
--- NOTE | 2025-02-27 18:21 | NUR ---
Patient repositioned with fleet operations manager assist. Patient denies pain and or shortness of breath. Patient declined oral care. Family at bedside. No current needs, personal supplies and call light within reach.
--- NOTE | 2025-02-27 19:30 | NUR ---
PATIENT RESTING IN BED WITH EYES CLOSED. PATIENT SON SITTING IN CHAIR AT BEDSIDE. PATIENT ABLE TO OPEN EYES. PATIENTS SON ALLYSON STATES SHE HAS BEEN ABLE TO SAY YES AND NO WHEN ASWERING QUESTIONS. PATIENT DENIES PAIN AT THIS TIME. CALL LIGHT IN REACH. BED ALARM ON. FALL MATS IN PLACE.
--- NOTE | 2025-02-27 20:44 | NUR ---
ROUNDING ON PATIENT. PATIENT APPEARS COMFORTABLE IN BED. PATIENTS SON ALLYSON AT BEDSIDE. THIS RN EDUCATED SON TO CALL IF HE HAS ANY QUESTIONS OR IS CONCERNED. PATIENT AND SON HAVE NO FURTHER NEEDS AT THIS TIME. CALL LIGHT IN REACH.
--- NOTE | 2025-02-27 21:15 | NUR ---
ROUNDING ON PATIENT. SON ASKING IF PATIENT CAN HAVE MORPHINE BECAUSE SHE HAS PERIODS OF APNEA. THIS RN ASKED PATIENT IF SHE WANTED SOME PAIN MEDICATION AND PATIENT SAID "OK". PRN PAIN MEDICATION ADMINSITERED. PATIENT REPOSITIONED IN BED WITH PILLOWS PLACED UNDER LEFT SIDE. BED ALARM ON. FALL MATS IN PLACE. CALL LIGHT IN REACH.
--- NOTE | 2025-02-27 22:22 | NUR ---
PATIENT RESTING IN BED WITH EYES CLOSED. SON AT BEDSIDE AND STATES THAT SHE LOOKS MORE COMFORTABLE. NO FURTHER NEEDS. CALL LIGHT IN REACH.
--- NOTE | 2025-02-28 00:11 | NUR ---
PATIENT RESTING IN BED, APPEARS COMFORTABLE AT THIS TIME. PATIENT AND SON DENY NEEDS AT THIS TIME. CALL LIGHT IN REACH.
--- NOTE | 2025-02-28 02:18 | NUR ---
PATIENT RESTING IN BED, PATIENT APPEARS COMFORTABLE AT THIS TIME. SON ASLEEP IN CHAIR AT BEDSIDE. NO FUTHER NEEDS. CALL LIGHT IN REACH. BED ALARM ON.
--- NOTE | 2025-02-28 03:31 | NUR ---
PATIENT RESTING IN BED WITH EYES CLOSED. APPEARS COMFORTABLE. SON ASLEEP AT BEDSIDE. CALL LIGHT IN REACH.
--- NOTE | 2025-02-28 05:10 | NUR ---
PATIENT RESTING IN BED ON BACK WITH EYES CLOSED. RESPIRATIONS EVEN AND UNLABORED. PATIENT APPEARS COMFORTABLE. SON ASLEEP IN CHAIR AT BEDSIDE. CALL LIGHT IN REACH.
--- NOTE | 2025-02-28 06:32 | NUR ---
PATIENT RESTING IN BED WITH EYES CLOSED. PATIENT REPOSITIONED IN BED. CALL LIGHT IN REACH. BED ALARM ON. FALL MATS IN PLACE.
[2025-02-28] MEDS ORDERED: LORAZEPAM2 MG/1 M2 PO (07:20)
[2025-02-28] MEDS ORDERED: MORPHINE S100 MG/5 M PO (07:20)
[2025-02-28] MEDS ORDERED: ACETAMINOPHEN650 MG PR (07:21)
[2025-02-28] MEDS ORDERED: ATROPINE SULFATE5 M1 SL (07:21)
--- NOTE | 2025-02-28 07:27 | NUR ---
RECIEVED REPORT FROM MELO HASSAN. PT SUPINE IN BED WITH EYES OPEN AND RR EVEN AND UNLABORED. BED ALARM ON. CALL LIGHT AND PERSONAL BELONGINGS ARE WITHIN REACH.
--- NOTE | 2025-02-28 07:30 | NUR ---
[facility] CALLED pt HAS NO DIET ORDER. DR ROQUE AT RN STATION, DR ROQUE STATES, "SHE CAN HAVE WHATEVEER SHE WANTS", VERBAL ORDER READ BACK FOR REGULAR DIET.
--- NOTE | 2025-02-28 08:22 | NUR ---
PT LAYING IN BED WTIH EYES OPEN. PT IS ALERT AND ANSWERS QUESTIONS APPROPRIATELY. ASSESSMENT COMPLETE AND DOCUMENTED IN CHART. PT DENIES PAIN AND STATES THAT SHE IS COMFORTABLE. HEART TONES IRREGULAR, LUNGS DIMINISHED THROUGHOUT. PULSES STRONG BILATERALLY. RINA JACOBS, IN ROOM TO ASSIST PT WITH BREAKFAST. CALL LIGHT AND PERSONAL BELONGINGS ARE WITHIN REACH. BED ALARM IS ON.
--- NOTE | 2025-02-28 09:01 | NUR ---
PATIENT ORDERS FAXED TO [facility]. NON EMERGENT CALLED AND SCHEDULED FOR AROUND 10 AM. NO FUTHER CM NEEDS.
--- NOTE | 2025-02-28 09:29 | NUR ---
PT LAYING IN BED WITH EYES OPEN, RR EVEN AND UNLABORED. FAMILY AND RINA FREEMAN, IN ROOM. CALL LIGHT AND PERSONAL BELONGINGS ARE WITHIN REACH.
--- NOTE | 2025-02-28 10:05 | NUR ---
PRN MORPHINE ADMINISTERED AND ANTUNEZ CATHETER REMOVED PRIOR TO DISCHARGE. PERSONAL BELONGINGS GIVEN TO THE FAMILY. PATIENT TO GO TO [place] TODAY BY NON-EMERGENT EMS.
--- NOTE | 2025-02-28 10:38 | NUR ---
REPORT GIVEN TO ABDI [place].
== END 2025-02-28 10:05 | DRG 308 ==
LOC: ED 16:19 → CCU 19:23 → MS 02-26 18:03
PROVIDERS: Emergency Medicine; Student in an Organized Health Care Education/Training Program; ADMIT Family Medicine; ATTEND Family Medicine
DX: I48.91 Unspecified atrial fibrillation (principal); I63.9 Cerebral infarction, unspecified; J96.01 Acute respiratory failure with hypoxia; D61.818 Other pancytopenia; F10.130 Alcohol abuse with withdrawal, uncomplicated; E51.2 Wernicke's encephalopathy; I10 Essential (primary) hypertension; E16.2 Hypoglycemia, unspecified; Z66 Do not resuscitate; Z51.5 Encounter for palliative care; E87.6 Hypokalemia; E83.42 Hypomagnesemia; J01.30 Acute sphenoidal sinusitis, unspecified; Z87.81 Personal history of (healed) traumatic fracture; Z70.1 Counseling related to patient's sexual behavior and orientation; Z79.899 Other long term (current) drug therapy; Z91.81 History of falling; Z82.49 Family history of ischemic heart disease and other diseases of the circulatory system
CPT/HCPCS: 36415; 36592; 36600; 51702; 70450; 70551; 71045; 71250; 80048; 80053; 80162; 81001; 82140; 82550; 82803; 83605; 83735; 84100; 84443; 84484; 85025; 85060; 87040; 92507; 92523; 92526; 93005; 93010; 93306; 94660; 94799; 96361; 96374; 96375; 96376; 97162; 97164; 97166; 97168; 97530; 97535; 99285-25; A9270; A9270-GY; J0696; J1160; J1650; J1938; J2060; J3411; J3420; J3475; J3480; J3490; J7040; J7060; J7121